=== PATIENT | female | born 1975 | race Caucasian/White ===

== ENCOUNTER → 2018-07-22 10:07 | Outpatient (CLI) | payer OTHER, SELFPAY ==
[2018-07-22 12:25] LABS: Add Manual Diff / Slide Review NO; Basophils Percent Auto 0.8 % (0-2); Eosinophils Percent Auto 3.4 % (2-4); Hemoglobin 13.2 g/dL (12.0-16.0); Mean Corpuscular HGB Conc 33.9 % (30-36); Mean Corpuscular Hemoglobin 31.6 PG (26-34); Mean Corpuscular Volume 93.3 fL (80-100); Monocytes Percent Auto 6.3 % (3-14); Neutrophils Absolute Auto 3200 /uL (3000-5900); Neutrophils Percent Auto 55.5 % (50-75); Platelet Count 209 X10^3/uL (150-400); Red Blood Cell Count 4.18 X10^6/uL (4.0-5.2); Red Cell Distribution Width 12.7 % (11.6-14.8); White Blood Cell Count 5.8 X10^3/uL (4.5-11.0)
[2018-07-22 12:50] LABS: Erythrocyte Sedimentation Rate 7 MM/HR (0-20)
[2018-07-22 20:29] LABS: C-Reactive Protein Quant < 0.5 mg/dL (<1.0)
[2018-07-23 11:18] LABS: Thyroid Stimulating Hormone 0.44 uIU/mL (0.47-4.68)
[2018-07-24 15:25] LABS: Thyroglobulin Level 16.5 ng/mL (2.8-40.9); Thyroid Peroxidase Antibodies 1 IU/mL (< 9)
[2018-07-26 13:19] LABS: ANA Screen POSITIVE (Negative); ANA Titer HOMOGENEOUS; DNA Antibody Crithidia IFA NEGATIVE (Negative); Rheumatoid Factor <14 IU/mL; Sjogren Antiboday SS-A <1.0 NEG AI (<1.0 NEGATIVE); Sjogren Antiboday SS-B <1.0 NEG AI (<1.0 NEGATIVE); Sm Antibody <1.0 NEG AI (<1.0 NEGATIVE); Sm/RNP Antibody <1.0 NEG AI (<1.0 NEGATIVE)
== END ==
PROVIDERS: PCP Internal Medicine; Visit Provider Allergy & Immunology
DX: L50.3 Dermatographic urticaria (principal); T78.3XXA Angioneurotic edema, initial encounter
CPT/HCPCS: 36415; 83520; 84432; 84443; 85025; 85651; 86038; 86140; 86376; 86430

== ENCOUNTER → 2018-08-12 07:58 | Outpatient (CLI) | payer OTHER, SELFPAY ==
[2018-08-17 17:13] LABS: 5-HIAA, Urine 3.1 mg/24 h (< OR = 6.0); Total Volume 2900 mL
[2018-08-21 15:01] LABS: Creatinine, 24 Urine 1.41 g/24 h (0.50-2.15); Total Catecholamines 28 mcg/24 h (26-121); Total Volume: 2900 mL
== END ==
PROVIDERS: Family Provider Internal Medicine; PCP Internal Medicine; Visit Provider Allergy & Immunology
DX: L50.3 Dermatographic urticaria (principal); T78.3XXA Angioneurotic edema, initial encounter
CPT/HCPCS: 82384; 82570; 83497

== ENCOUNTER 2018-10-06 22:10 | Emergency (ER) | payer OTHER, SELFPAY ==
[2018-10-06 22:15] VITALS: BP 139/78; PULSE 85; RESP 20; TEMP 37.1; O2SAT 100; BMI 27.4
--- NOTE | 2018-10-06 23:16 | DI.CT.S_ITS ---
PROCEDURE: CT HEAD/BRAIN WO CON INDICATIONS: confusion, speech trouble TECHNIQUE: Noncontrast 4.5 mm thick angled axial sections acquired from the foramen magnum to the vertex, with coronal and sagittal reformats. For radiation dose reduction, the following was used: automated exposure control, adjustment of mA and/or kV according to patient size. COMPARISON: None. FINDINGS: Image quality: Excellent. CSF spaces: Basal cisterns are patent. No extra-axial fluid collections. Ventricles are normal in size and shape. Brain: No midline shift. No intracranial masses or hemorrhage. [place]-white matter interface is normal. Skull and face: Calvarium and visualized facial bones are intact, without suspicious lesions. Sinuses: Visualized sinuses and mastoids are clear. IMPRESSION: No acute intracranial disease process. Dictated by: Stephani Feliz MD, PhD on 10/07/2018 at 8:02 Approved by: Stephani Feliz MD, PhD on 10/07/2018 at 8:03
[2018-10-06 23:37] LABS: Add Manual Diff / Slide Review NO; Basophils Absolute Auto 0 /uL (0-100); Basophils Percent Auto 0.7 % (0-2); Eosinophils Absolute Auto 100 /uL (0-450); Eosinophils Percent Auto 2.1 % (2-4); Hematocrit 38.8 % (36-46); Hemoglobin 13.1 g/dL (12.0-16.0); Lymphocytes Absolute Auto 1900 /uL (1100-4500); Mean Corpuscular HGB Conc 33.6 % (30-36); Mean Corpuscular Hemoglobin 31.4 PG (26-34); Mean Corpuscular Volume 93.5 fL (80-100); Monocytes Absolute Auto 500 /uL (0-900); Monocytes Percent Auto 8.4 % (3-14); Neutrophils Absolute Auto 3800 /uL (1500-7000); Neutrophils Percent Auto 58.8 % (50-75); Platelet Count 215 X10^3/uL (150-400); Red Blood Cell Count 4.15 X10^6/uL (4.0-5.2); Red Cell Distribution Width 12.4 % (11.6-14.8); White Blood Cell Count 6.4 X10^3/uL (4.5-11.0)
[2018-10-06 23:51] LABS: Alanine Aminotransferase 25 IU/L (9-52); Albumin 4.3 g/dL (3.5-5.0); Albumin Globulin Ratio 1.5 (1.0-2.8); Alkaline Phosphatase 46 U/L (38-126); Aspartate Aminotransferase 20 IU/L (14-36); BUN Creatinine Ratio 16.3 (6-22); Bilirubin Total 0.4 mg/dL (0.2-1.3); Blood Urea Nitrogen 13 mg/dL (7-17); Calcium 8.8 mg/dL (8.4-10.2); Carbon Dioxide 22 mmol/L (22-32); Chloride 105 mmol/L (98-107); Estimated Glomerular Filt Rate > 60.0 mL/min (>60); Globulin 2.9 g/dL (1.7-4.1); Glucose 91 mg/dL (70-100); HEMOLYSIS < 15 (0-50); Potassium 3.8 mmol/L (3.4-5.1); Sodium 138 mmol/L (137-145); Total Protein 7.2 g/dL (6.3-8.2)
[2018-10-07 00:13] LABS: Bacteria Urine None Seen; RBC Urine None Seen (0-5/HPF); WBC Urine None Seen (0-5/HPF)
[2018-10-07 00:16] LABS: Culture Indicated Urine Cult Not Indicated; Squamous Epithelial Cell Urine 1-5 /HPF; Urine Comments Microscopic Normal
[2018-10-07 00:17] LABS: Urine Amphetamines Negative (Negative); Urine Barbiturates Negative (Negative); Urine Benzodiazepines Negative (Negative); Urine Cocaine Negative (Negative); Urine MDMA Negative (Negative); Urine Methadone Negative (Negative); Urine Methamphetamines Negative (Negative); Urine Morphine/Opi cutoff 2000 Negative (Negative); Urine Oxycodone Negative (Negative); Urine Phencyclidine Negative (Negative); Urine Tetrahydrocannabinol Negative (Negative); Urine Tricyclic Antidepressant Negative (Negative)
--- NOTE | 2018-10-07 00:23 | ED.ANXIETY ---
HPI - Anxiety General Chief Complaint: Extremity Problem,Nontraumatic Stated Complaint: Seeing things backwards, cold/tingling L arm Time Seen by Provider: 10/06/18 22:31 Source: patient and family Mode of arrival: ambulatory Limitations: no limitations History of Present Illness HPI narrative: 42-year-old female, nonsmoker with extensive, complicated medical history and current evaluation for possible lupus. Patient presents with multiple months various neurologic symptoms including numbness, tingling and weakness as well as some confusion visual change. She is here today because earlier today she had an episode where she was the quite confused when attempting to read things seemed backwards. She wanted to be checked out. She denies any current symptoms. She admittedly tends to run anxious. She denies alcohol, smoking or street drugs. Patient recently was started on Wellbutrin by her PCP and she states it feels as if her symptoms have drastically worsened since. She has an appointment with him at 0800 tomorrow. MD complaint: anxiety and heart racing Onset (ago): month(s) Symptoms: extremity numbness/tingling and other Severity: moderate Quality: intermittent Place: home History of similar episodes: Yes Provoking factors: none known Relieving factors: nothing Exacerbating factors: nothing Related Data Home Medications Medication Instructions Recorded Confirmed cetirizine 10 mg PO QDAYP PRN #0 tab 06/19/16 Review of Systems Constitutional Denies chills, Denies fever(s), Denies lethargy and Denies weakness Eyes Denies change in vision, Denies eye discharge, Denies irritation and Denies loss of vision ENT Ears, Nose, Mouth, and Throat: Denies change in voice, Denies neck pain and Denies sore throat Cardiovascular Denies chest pain, Denies irregular heart rhythm, Denies lightheadedness, Denies palpitations, Denies dyspnea, Denies dyspnea on exertion and Denies orthopnea Respiratory Denies cough, Denies dyspnea, Denies dyspnea on exertion and Denies wheezing Gastrointestinal Gastrointestinal: Denies abdominal pain, Denies change in bowel habits, Denies diarrhea, Denies nausea and Denies vomiting Genitourinary Denies hematuria, Denies flank pain, Denies urinary incontinence and Denies urinary urgency Musculoskeletal Denies neck pain and Reports numbness Integumentary/Breasts Denies pruritus, Denies erythema, Denies rash and Denies wounds Neurologic Reports confusion, Denies loss of vision, Reports numbness, Reports sensory deficit, Reports paresthesias and Denies weakness Psychiatric Denies anxiety, Reports confusion, Denies depression, Denies homicidal ideation and Denies suicidal ideation Endocrine Denies palpitations Hematologic/Lymphatic Denies easy bruising Allergic/Immunologic Denies wheezing [facility] Surgical History Status post tubal ligation Social History Smoking Status: Never smoker Exam Narrative Exam Narrative: GENERAL: 42-year-old female, pressured speech, obviously anxious and concerned HEAD: Atraumatic. Normocephalic. No temporal or scalp tenderness. EYES: Pupils equal round and reactive. Extraocular motions intact. No scleral icterus. No injection or drainage. ENT: Nose without bleeding, purulent drainage or septal hematoma. Throat without erythema, tonsillar hypertrophy or exudate. Uvula midline. Airway patent. NECK: Trachea midline. No JVD or lymphadenopathy. Supple, nontender, no meningeal signs. CARDIOVASCULAR: Regular rate and rhythm without murmurs, gallops, or rubs. RESPIRATORY: Clear to auscultation. Breath sounds equal bilaterally. No wheezes, rales, or rhonchi. GASTROINTESTINAL: Abdomen soft, non-tender, nondistended. No hepato-splenomegaly, or palpable masses. No guarding. EXTREMITIES: No clubbing, cyanosis, or edema. No joint tenderness, effusion, or edema noted. BACK: Nontender without deformity or crepitance. No flank tenderness. NEURO: AOx3. SKIN: No rash or erythema. NIH Stroke Scale 1a. LOC: Patient is alert and keenly responsive (0) 1b. LOC Questions: Patient answers both LOC questions accurately (0) 1c. LOC Commands: Patient performs both tasks correctly (0) 2. Best Gaze: Normal (0) 3. Visual: No visual loss (0) 4. Facial palsy: Normal symmetrical movements (0) 5. Motor arm: No drift (0) 6. Motor leg: No drift (0) 7. Limb ataxia: Absent (0) 8. Sensory: Normal (0) 9. Best language: No aphasia; normal (0) 10. Dysarthria: Normal (0) 11. Extinction and inattention: No abnormality (0) NIHSS: 0 Initial Vital Signs Initial Vital Signs: Vital Signs Temperature 98.7 F 10/06/18 22:15 Pulse Rate 85 10/06/18 22:15 Respiratory Rate 20 10/06/18 22:15 Blood Pressure 139/78 10/06/18 22:15 Pulse Oximetry 100 10/06/18 22:15 Course Orders Ordered: ED Orders 10/06/18 23:16 CT head/brain wo con Stat 10/06/18 23:22 Complete Blood Count AUTO DIFF Stat Comprehensive Metabolic Panel Stat T4 Total Thyroxine Stat Thyroid Stimulating Hormone Stat 10/07/18 00:06 Urine Drug Screen, Rapid Stat 10/07/18 00:07 Urine Microscopic Stat Vital Signs - 8 hr 10/06/18 22:15 Temperature 98.7 F Pulse Rate 85 Respiratory Rate 20 Blood Pressure 139/78 Pulse Oximetry 100 MDM - Anxiety Differential Diagnosis Differential diagnosis: Likely acute anxiety and other Medical Records Attestation: I reviewed the patient's medical records. Lab Data Attestation: I reviewed the patient's lab results. Result diagrams: 10/06/18 23:22 10/06/18 23:22 Lab Results 10/06/18 10/06/18 10/06/18 Range/Units 23:22 23:22 23:22 WBC 6.4 (4.5-11.0) X10^3/uL RBC 4.15 (4.0-5.2) X10^6/uL Hgb 13.1 (12.0-16.0) g/dL Hct 38.8 (36-46) % MCV 93.5 (80-100) fL MCH 31.4 (26-34) PG MCHC 33.6 (30-36) % RDW 12.4 (11.6-14.8) % Plt Count 215 (150-400) X10^3/uL Neut % (Auto) 58.8 (50-75) % Lymph % (Auto) 30.0 (25-40) % [place] % (Auto) 8.4 (3-14) % Eos % (Auto) 2.1 (2-4) % Baso % (Auto) 0.7 (0-2) % Neut # (Auto) 3800 (1284-0913) /uL Lymph # (Auto) 1900 (6782-1887) /uL [place] # (Auto) 500 (0-900) /uL Eos # (Auto) 100 (0-450) /uL Baso # (Auto) 0 (0-100) /uL Sodium 138 (137-145) mmol/L Potassium 3.8 (3.4-5.1) mmol/L Chloride 105 (98-107) mmol/L Carbon Dioxide 22 (22-32) mmol/L BUN 13 (7-17) mg/dL Creatinine 0.80 (0.52-1.04) mg/dL Estimated GFR > 60.0 (>60) mL/min BUN/Creatinine Ratio 16.3 (6-22) Glucose 91 (70-100) mg/dL Calcium 8.8 (8.4-10.2) mg/dL Total Bilirubin 0.4 (0.2-1.3) mg/dL AST 20 (14-36) IU/L ALT 25 (9-52) IU/L Alkaline Phosphatase 46 (38-126) U/L Total Protein 7.2 (6.3-8.2) g/dL Albumin 4.3 (3.5-5.0) g/dL Globulin 2.9 (1.7-4.1) g/dL Albumin/Globulin Ratio 1.5 (1.0-2.8) TSH 0.47 (0.47-4.68) uIU/mL Urine RBC (0-5/HPF) Urine WBC (0-5/HPF) Ur Squamous Epith Cells Urine Bacteria (None) Ur Culture Indicated? Micro UA Comment Urine Opiates Screen (Negative) Ur Oxycodone Screen (Negative) Urine Methadone Screen (Negative) Ur Barbiturates Screen (Negative) U Tricyclic Antidepress (Negative) Ur Phencyclidine Scrn (Negative) Ur Amphetamines Screen (Negative) U Methamphetamines Scrn (Negative) Ur MDMA Scrn (Ecstasy) (Negative) U Benzodiazepines Scrn (Negative) Urine Cocaine Screen (Negative) U Marijuana (THC) Screen (Negative) 10/06/18 10/06/18 Range/Units 23:41 23:41 WBC (4.5-11.0) X10^3/uL RBC (4.0-5.2) X10^6/uL Hgb (12.0-16.0) g/dL Hct (36-46) % MCV (80-100) fL MCH (26-34) PG MCHC (30-36) % RDW (11.6-14.8) % Plt Count (150-400) X10^3/uL Neut % (Auto) (50-75) % Lymph % (Auto) (25-40) % [place] % (Auto) (3-14) % Eos % (Auto) (2-4) % Baso % (Auto) (0-2) % Neut # (Auto) (0924-4895) /uL Lymph # (Auto) (2311-0100) /uL [place] # (Auto) (0-900) /uL Eos # (Auto) (0-450) /uL Baso # (Auto) (0-100) /uL Sodium (137-145) mmol/L Potassium (3.4-5.1) mmol/L Chloride (98-107) mmol/L Carbon Dioxide (22-32) mmol/L BUN (7-17) mg/dL Creatinine (0.52-1.04) mg/dL Estimated GFR (>60) mL/min BUN/Creatinine Ratio (6-22) Glucose (70-100) mg/dL Calcium (8.4-10.2) mg/dL Total Bilirubin (0.2-1.3) mg/dL AST (14-36) IU/L ALT (9-52) IU/L Alkaline Phosphatase (38-126) U/L Total Protein (6.3-8.2) g/dL Albumin (3.5-5.0) g/dL Globulin (1.7-4.1) g/dL Albumin/Globulin Ratio (1.0-2.8) TSH (0.47-4.68) uIU/mL Urine RBC None seen (0-5/HPF) Urine WBC None seen (0-5/HPF) Ur Squamous Epith Cells 1-5 /hpf Urine Bacteria None seen (None) Ur Culture Indicated? Cult not indicated Micro UA Comment Microscopic normal Urine Opiates Screen Negative (Negative) Ur Oxycodone Screen Negative (Negative) Urine Methadone Screen Negative (Negative) Ur Barbiturates Screen Negative (Negative) U Tricyclic Antidepress Negative (Negative) Ur Phencyclidine Scrn Negative (Negative) Ur Amphetamines Screen Negative (Negative) U Methamphetamines Scrn Negative (Negative) Ur MDMA Scrn (Ecstasy) Negative (Negative) U Benzodiazepines Scrn Negative (Negative) Urine Cocaine Screen Negative (Negative) U Marijuana (THC) Screen Negative (Negative) Point of Care Testing Test Results Negative Urine Dip Bedside Urine Glucose Negative Bedside Urine Bilirubin - Negative Bedside Urine Ketone ++ 40 Urine Specific [place] 1.010 Bedside Urine Occult Blood - Negative Bedside Urine pH 7.0 Bedside Urine Protein - Negative Bedside Urine Urobilinogen - Negative Bedside Urine Nitrite - Negative Bedside Urine Leukocytes - Negative Esterase Imaging Data CT scan - head: Radiologist's impression: NAP MDM Narrative Medical decision making narrative: Multiple etiologies for patient's symptoms considered including: [Anxiety, stroke, TIA, thyroid problem, other metabolic derangement vs. other] Patient's symptoms improved or duration of stay with above-stated therapies. Findings and discharge diagnosis discussed with patient/family followed by verbalization of understanding Return precautions discussed with patient/family whom verbalize understanding. Discharge Plan Departure Patient Disposition: Home Clinical Impression: Paresthesia, Anxiety Instructions: DI for Numbness/tingling Activity Restrictions/Additional Instructions: *You have been diagnosed with [ acute episode of confusion, resolved, paresthesia, resolved ] *What to do: * continue to take medications as directed *Follow up with your primary care provider in 2-3 days, call for an appointment. Let them know you were seen in the Emergency Department and that we ask that you be seen in follow up *Return to ER if you should have any new, worsening or concerning symptoms Prescriptions: No Action cetirizine 10 MG tablet 10 mg PO QDAYP PRNQty: 0 RF: 0 Referrals: Ted Adame MD [Primary Care Provider] -
--- NOTE | 2018-10-07 00:29 | ED_ITS ---
HPI - Anxiety General Chief Complaint: Extremity Problem,Nontraumatic Stated Complaint: Seeing things backwards, cold/tingling L arm Time Seen by Provider: 10/06/18 22:31 Source: patient and family Mode of arrival: ambulatory Limitations: no limitations History of Present Illness HPI narrative: 42-year-old female, nonsmoker with extensive, complicated medical history and current evaluation for possible lupus. Patient presents with multiple months various neurologic symptoms including numbness, tingling and weakness as well as some confusion visual change. She is here today because earlier today she had an episode where she was the quite confused when attempting to read things seemed backwards. She wanted to be checked out. She denies any current symptoms. She admittedly tends to run anxious. She denies alcohol, smoking or street drugs. Patient recently was started on Wellbutrin by her PCP and she states it feels as if her symptoms have drastically worsened since. She has an appointment with him at 0800 tomorrow. MD complaint: anxiety and heart racing Onset (ago): month(s) Symptoms: extremity numbness/tingling and other Severity: moderate Quality: intermittent Place: home History of similar episodes: Yes Provoking factors: none known Relieving factors: nothing Exacerbating factors: nothing Related Data Home Medications Medication Instructions Recorded Confirmed cetirizine 10 mg PO QDAYP PRN #0 tab 06/19/16 Review of Systems Constitutional Denies chills, Denies fever(s), Denies lethargy and Denies weakness Eyes Denies change in vision, Denies eye discharge, Denies irritation and Denies loss of vision ENT Ears, Nose, Mouth, and Throat: Denies change in voice, Denies neck pain and Denies sore throat Cardiovascular Denies chest pain, Denies irregular heart rhythm, Denies lightheadedness, Denies palpitations, Denies dyspnea, Denies dyspnea on exertion and Denies orthopnea Respiratory Denies cough, Denies dyspnea, Denies dyspnea on exertion and Denies wheezing Gastrointestinal Gastrointestinal: Denies abdominal pain, Denies change in bowel habits, Denies diarrhea, Denies nausea and Denies vomiting Genitourinary Denies hematuria, Denies flank pain, Denies urinary incontinence and Denies urinary urgency Musculoskeletal Denies neck pain and Reports numbness Integumentary/Breasts Denies pruritus, Denies erythema, Denies rash and Denies wounds Neurologic Reports confusion, Denies loss of vision, Reports numbness, Reports sensory deficit, Reports paresthesias and Denies weakness Psychiatric Denies anxiety, Reports confusion, Denies depression, Denies homicidal ideation and Denies suicidal ideation Endocrine Denies palpitations Hematologic/Lymphatic Denies easy bruising Allergic/Immunologic Denies wheezing [facility] Surgical History Status post tubal ligation Social History Smoking Status: Never smoker Exam Narrative Exam Narrative: GENERAL: 42-year-old female, pressured speech, obviously anxious and concerned HEAD: Atraumatic. Normocephalic. No temporal or scalp tenderness. EYES: Pupils equal round and reactive. Extraocular motions intact. No scleral icterus. No injection or drainage. ENT: Nose without bleeding, purulent drainage or septal hematoma. Throat without erythema, tonsillar hypertrophy or exudate. Uvula midline. Airway patent. NECK: Trachea midline. No JVD or lymphadenopathy. Supple, nontender, no meningeal signs. CARDIOVASCULAR: Regular rate and rhythm without murmurs, gallops, or rubs. RESPIRATORY: Clear to auscultation. Breath sounds equal bilaterally. No wheezes , rales, or rhonchi. GASTROINTESTINAL: Abdomen soft, non-tender, nondistended. No hepato-splenomegaly , or palpable masses. No guarding. EXTREMITIES: No clubbing, cyanosis, or edema. No joint tenderness, effusion, or edema noted. BACK: Nontender without deformity or crepitance. No flank tenderness. NEURO: AOx3. SKIN: No rash or erythema. NIH Stroke Scale 1a. LOC: Patient is alert and keenly responsive (0) 1b. LOC Questions: Patient answers both LOC questions accurately (0) 1c. LOC Commands: Patient performs both tasks correctly (0) 2. Best Gaze: Normal (0) 3. Visual: No visual loss (0) 4. Facial palsy: Normal symmetrical movements (0) 5. Motor arm: No drift (0) 6. Motor leg: No drift (0) 7. Limb ataxia: Absent (0) 8. Sensory: Normal (0) 9. Best language: No aphasia; normal (0) 10. Dysarthria: Normal (0) 11. Extinction and inattention: No abnormality (0) NIHSS: 0 Initial Vital Signs Initial Vital Signs: Vital Signs Temperature 98.7 F 10/06/18 22:15 Pulse Rate 85 10/06/18 22:15 Respiratory Rate 20 10/06/18 22:15 Blood Pressure 139/78 10/06/18 22:15 Pulse Oximetry 100 10/06/18 22:15 Course Orders Ordered: ED Orders 10/06/18 23:16 CT head/brain wo con Stat 10/06/18 23:22 Complete Blood Count AUTO DIFF Stat Comprehensive Metabolic Panel Stat T4 Total Thyroxine Stat Thyroid Stimulating Hormone Stat 10/07/18 00:06 Urine Drug Screen, Rapid Stat 10/07/18 00:07 Urine Microscopic Stat Vital Signs - 8 hr 10/06/18 22:15 Temperature 98.7 F Pulse Rate 85 Respiratory Rate 20 Blood Pressure 139/78 Pulse Oximetry 100 MDM - Anxiety Differential Diagnosis Differential diagnosis: Likely acute anxiety and other Medical Records Attestation: I reviewed the patient's medical records. Lab Data Attestation: I reviewed the patient's lab results. Result diagrams: 10/06/18 23:22 10/06/18 23:22 Lab Results 10/06/18 10/06/18 10/06/18 Range/Units 23:22 23:22 23:22 WBC 6.4 (4.5-11.0) X10^3/uL RBC 4.15 (4.0-5.2) X10^6/uL Hgb 13.1 (12.0-16.0) g/dL Hct 38.8 (36-46) % MCV 93.5 (80-100) fL MCH 31.4 (26-34) PG MCHC 33.6 (30-36) % RDW 12.4 (11.6-14.8) % Plt Count 215 (150-400) X10^3/uL Neut % (Auto) 58.8 (50-75) % Lymph % (Auto) 30.0 (25-40) % [place] % (Auto) 8.4 (3-14) % Eos % (Auto) 2.1 (2-4) % Baso % (Auto) 0.7 (0-2) % Neut # (Auto) 3800 (5744-0210) /uL Lymph # (Auto) 1900 (8433-9349) /uL [place] # (Auto) 500 (0-900) /uL Eos # (Auto) 100 (0-450) /uL Baso # (Auto) 0 (0-100) /uL Sodium 138 (137-145) mmol/L Potassium 3.8 (3.4-5.1) mmol/L Chloride 105 (98-107) mmol/L Carbon Dioxide 22 (22-32) mmol/L BUN 13 (7-17) mg/dL Creatinine 0.80 (0.52-1.04) mg/dL Estimated GFR > 60.0 (>60) mL/min BUN/Creatinine Ratio 16.3 (6-22) Glucose 91 (70-100) mg/dL Calcium 8.8 (8.4-10.2) mg/dL Total Bilirubin 0.4 (0.2-1.3) mg/dL AST 20 (14-36) IU/L ALT 25 (9-52) IU/L Alkaline Phosphatase 46 (38-126) U/L Total Protein 7.2 (6.3-8.2) g/dL Albumin 4.3 (3.5-5.0) g/dL Globulin 2.9 (1.7-4.1) g/dL Albumin/Globulin Ratio 1.5 (1.0-2.8) TSH 0.47 (0.47-4.68) uIU/mL Urine RBC (0-5/HPF) Urine WBC (0-5/HPF) Ur Squamous Epith Cells Urine Bacteria (None) Ur Culture Indicated? Micro UA Comment Urine Opiates Screen (Negative) Ur Oxycodone Screen (Negative) Urine Methadone Screen (Negative) Ur Barbiturates Screen (Negative) U Tricyclic Antidepress (Negative) Ur Phencyclidine Scrn (Negative) Ur Amphetamines Screen (Negative) U Methamphetamines Scrn (Negative) Ur MDMA Scrn (Ecstasy) (Negative) U Benzodiazepines Scrn (Negative) Urine Cocaine Screen (Negative) U Marijuana (THC) Screen (Negative) 10/06/18 10/06/18 Range/Units 23:41 23:41 WBC (4.5-11.0) X10^3/uL RBC (4.0-5.2) X10^6/uL Hgb (12.0-16.0) g/dL Hct (36-46) % MCV (80-100) fL MCH (26-34) PG MCHC (30-36) % RDW (11.6-14.8) % Plt Count (150-400) X10^3/uL Neut % (Auto) (50-75) % Lymph % (Auto) (25-40) % [place] % (Auto) (3-14) % Eos % (Auto) (2-4) % Baso % (Auto) (0-2) % Neut # (Auto) (6237-7628) /uL Lymph # (Auto) (3349-4157) /uL [place] # (Auto) (0-900) /uL Eos # (Auto) (0-450) /uL Baso # (Auto) (0-100) /uL Sodium (137-145) mmol/L Potassium (3.4-5.1) mmol/L Chloride (98-107) mmol/L Carbon Dioxide (22-32) mmol/L BUN (7-17) mg/dL Creatinine (0.52-1.04) mg/dL Estimated GFR (>60) mL/min BUN/Creatinine Ratio (6-22) Glucose (70-100) mg/dL Calcium (8.4-10.2) mg/dL Total Bilirubin (0.2-1.3) mg/dL AST (14-36) IU/L ALT (9-52) IU/L Alkaline Phosphatase (38-126) U/L Total Protein (6.3-8.2) g/dL Albumin (3.5-5.0) g/dL Globulin (1.7-4.1) g/dL Albumin/Globulin Ratio (1.0-2.8) TSH (0.47-4.68) uIU/mL Urine RBC None seen (0-5/HPF) Urine WBC None seen (0-5/HPF) Ur Squamous Epith Cells 1-5 /hpf Urine Bacteria None seen (None) Ur Culture Indicated? Cult not indicated Micro UA Comment Microscopic normal Urine Opiates Screen Negative (Negative) Ur Oxycodone Screen Negative (Negative) Urine Methadone Screen Negative (Negative) Ur Barbiturates Screen Negative (Negative) U Tricyclic Antidepress Negative (Negative) Ur Phencyclidine Scrn Negative (Negative) Ur Amphetamines Screen Negative (Negative) U Methamphetamines Scrn Negative (Negative) Ur MDMA Scrn (Ecstasy) Negative (Negative) U Benzodiazepines Scrn Negative (Negative) Urine Cocaine Screen Negative (Negative) U Marijuana (THC) Screen Negative (Negative) Point of Care Testing Test Results Negative Urine Dip Bedside Urine Glucose Negative Bedside Urine Bilirubin - Negative Bedside Urine Ketone ++ 40 Urine Specific [place] 1.010 Bedside Urine Occult Blood - Negative Bedside Urine pH 7.0 Bedside Urine Protein - Negative Bedside Urine Urobilinogen - Negative Bedside Urine Nitrite - Negative Bedside Urine Leukocytes - Negative Esterase Imaging Data CT scan - head: Radiologist's impression: NAP MDM Narrative Medical decision making narrative: Multiple etiologies for patient's symptoms considered including: [Anxiety, stroke, TIA, thyroid problem, other metabolic derangement vs. other] Patient's symptoms improved or duration of stay with above-stated therapies. Findings and discharge diagnosis discussed with patient/family followed by verbalization of understanding Return precautions discussed with patient/family whom verbalize understanding. Discharge Plan Departure Patient Disposition: Home Clinical Impression: Paresthesia, Anxiety Instructions: DI for Numbness/tingling Activity Restrictions/Additional Instructions: *You have been diagnosed with [ acute episode of confusion, resolved, paresthesia, resolved ] *What to do: * continue to take medications as directed *Follow up with your primary care provider in 2-3 days, call for an appointment. Let them know you were seen in the Emergency Department and that we ask that you be seen in follow up *Return to ER if you should have any new, worsening or concerning symptoms Prescriptions: No Action cetirizine 10 MG tablet 10 mg PO QDAYP PRNQty: 0 RF: 0 Referrals: Ted Adame MD [Primary Care Provider] -
[2018-10-07 00:34] LABS: Thyroid Stimulating Hormone 0.47 uIU/mL (0.47-4.68)
[2018-10-07 00:45] VITALS: BP 118/72; PULSE 69; O2SAT 100
[2018-10-07 00:58] LABS: T4 Total Thyroxine 7.23 ug/dL (5.5-11.0)
== END 2018-10-07 00:46 | disposition home or self-care (01) ==
PROVIDERS: Emergency Provider Emergency Medicine; Family Provider Internal Medicine; PCP Internal Medicine
DX: R20.2 Paresthesia of skin (principal); F41.9 Anxiety disorder, unspecified
CPT/HCPCS: 36591; 70450; 80053; 80305; 81003; 81015; 81025; 84436; 84443; 85025; 99282; 99284

== ENCOUNTER 2019-03-16 17:36 | Emergency (ER) | payer OTHER, SELFPAY ==
[2019-03-16 17:39] VITALS: BP 102/70; PULSE 109; RESP 20; TEMP 36.9; O2SAT 99
--- NOTE | 2019-03-16 18:52 | DI.RAD.S_ITS ---
PROCEDURE: XR CHEST 2V INDICATIONS: fever, pleuritic pain TECHNIQUE: 2 views of the chest were acquired. COMPARISON: None. FINDINGS: Surgical changes and devices: None. Lungs and pleura: Ill-defined nodular opacity projects in the left perihilar region. This could be further evaluated with dedicated contrast enhanced chest CT if clinically necessary. No pleural effusions or pneumothorax. Mediastinum: Mediastinal contours are normal. Heart size is normal. Bones and chest wall: No suspicious bony abnormalities. Soft tissues appear unremarkable. IMPRESSION: Increased left perihilar opacity, potentially enlarged pulmonary vessels versus lymphadenopathy although technically indeterminate. Elsewhere, no acute consolidation. Dictated by: Abdullahi Childs M.D. on 03/16/2019 at 19:35 Approved by: Abdullahi Childs M.D. on 03/16/2019 at 19:37
--- NOTE | 2019-03-16 19:06 | ED_ITS ---
HPI - Fever General Chief Complaint: Fever Stated Complaint: fever 5x days Time Seen by Provider: 03/16/19 18:52 Source: patient Mode of arrival: ambulatory Limitations: no limitations History of Present Illness HPI Narrative: Patient is a 43-year-old female who was told to come to the emergency department by her primary provider. Patient states that she has had fevers off and on for the past 5 days. She contacted her primary provider who after a telemedicine visit recommended that she come to the emergency department for evaluation. Patient states she has had fevers off and on for the past 5 days. She states she has had body aches and fatigue. No chest pain or shortness of breath. She does state she has right upper abdomen pain. Denies any diarrhea. No urinary symptoms. Related Data Home Medications Medication Instructions Recorded Confirmed cetirizine 40 mg PO QDAYP #0 tab 06/19/16 albuterol sulfate [ProAir HFA] 1 puff INHALATION Q4-6H PRN 03/16/19 03/16/19 gabapentin 600 mg PO BID 03/16/19 03/16/19 lorazepam [Ativan] 1 mg PO BID-TID PRN 03/16/19 03/16/19 montelukast 10 mg PO QPM 03/16/19 03/16/19 zolpidem [Ambien] 10 mg PO BEDTIME PRN 03/16/19 03/16/19 Previous Rx's Medication Instructions Recorded levofloxacin 250 mg PO DAILY #2 tab 03/16/19 Allergies Allergy/AdvReac Type Severity Reaction Status Date / Time No Known Drug Allergies Allergy Verified 03/16/19 17:43 Review of Systems Constitutional Reports body ache(s), Reports chills, Reports fatigue, Reports fever(s) and Reports lethargy Cardiovascular Denies chest pain and Denies dyspnea Respiratory Denies dyspnea Gastrointestinal Gastrointestinal: Reports abdominal pain, Denies change in stool character, Denies nausea and Denies vomiting Genitourinary Denies dysuria and Denies vaginal discharge Musculoskeletal Reports myalgias and Denies arthralgias Integumentary/Breasts Denies rash Neurologic Denies behavioral changes Psychiatric Denies behavioral changes Endocrine Reports fatigue Hematologic/Lymphatic Denies easy bleeding and Denies easy bruising [facility] Medical History Scleroderma (Acute) Surgical History Status post tubal ligation Social History Smoking Status: Never smoker Social History Smoking Status: Never smoker Exam Initial Vital Signs Initial Vital Signs: Vital Signs Temperature 98.4 F 03/16/19 17:39 Pulse Rate 109 H 03/16/19 17:39 Respiratory Rate 20 03/16/19 17:39 Blood Pressure 102/70 03/16/19 17:39 Pulse Oximetry 99 03/16/19 17:39 Const General: cooperative, comfortable, well developed, well groomed and No acute distress Orientation: alert, awake and oriented x3 HENMT Head: normal to inspection and normocephalic Resp Effort & Inspection: normal respiratory effort Auscultation: clear to auscultation bilaterally Cardio Rate: tachycardic Rhythm: regular rhythm Pulses: radial pulses present GI Inspection: non-distended Palpation: soft, No firm, No guarding and tender (Right upper quadrant positive De Jesus sign) Back/Spine/Pelvis Back: No CVA tenderness Skin Lesions: no lesions Rashes: no rashes Neuro General: alert, awake and oriented x3 Cognition: normal cognition Speech: speech normal Extrem General: normal to inspection and capillary refill normal Psych Appearance: grossly normal and well kempt Course Orders Ordered: ED Orders 03/16/19 18:52 XR chest 2V Stat 03/16/19 19:00 Complete Blood Count AUTO DIFF Stat Comprehensive Metabolic Panel Stat Lactate (Lactic Acid) Stat Lipase Stat Partial Thromboplastin Time Stat Procalcitonin Stat Prothrombin Time INR Stat 03/16/19 19:16 US abdomen limited Stat 03/16/19 19:30 Blood Culture Stat 03/16/19 19:40 Influenza A and B by PCR Rapid Stat 03/16/19 22:20 Urine Culture Stat Urine Microscopic Stat Discontinued Medications Acetaminophen (Tylenol) 650 mg PO NOW ONE Stop: 03/16/19 21:07 Last Admin: 03/16/19 21:10 Dose: 650 mg Levofloxacin (Levaquin) 250 mg PO NOW ONE Stop: 03/16/19 23:01 Last Admin: 03/16/19 23:04 Dose: 250 mg Ondansetron HCl (Zofran) 4 mg IV NOW ONE Stop: 03/16/19 21:07 Last Admin: 03/16/19 21:10 Dose: 4 mg Vital Signs - 8 hr 03/16/19 17:39 03/16/19 19:50 03/16/19 21:10 Temperature 98.4 F 99.0 F Pulse Rate 109 H 103 H Respiratory Rate 20 18 Blood Pressure 102/70 Blood Pressure [Left Arm] 108/58 L Pulse Oximetry 99 03/16/19 22:48 03/16/19 22:49 Temperature 98.9 F Pulse Rate 93 H Respiratory Rate 16 Blood Pressure Blood Pressure [Left Arm] 106/57 L Pulse Oximetry 100 MDM - Fever Medical Records Attestation: I reviewed the patient's medical records. Lab Data Attestation: I reviewed the patient's lab results. Result diagrams: 03/16/19 19:00 03/16/19 19:00 Lab Results 03/16/19 03/16/19 03/16/19 Range/Units 19:00 19:00 19:00 WBC 16.4 H (4.5-11.0) X10^3/uL RBC 4.56 (4.0-5.2) X10^6/uL Hgb 14.2 (12.0-16.0) g/dL Hct 41.8 (36-46) % MCV 91.8 (80-100) fL MCH 31.1 (26-34) PG MCHC 33.9 (30-36) % RDW 12.6 (11.6-14.8) % Plt Count 222 (150-400) X10^3/uL Neut % (Auto) 80.0 H (50-75) % Lymph % (Auto) 9.3 L (25-40) % Howard % (Auto) 10.3 (3-14) % Eos % (Auto) 0.2 L (2-4) % Baso % (Auto) 0.2 (0-2) % Neut # (Auto) 22796 H (9827-4283) /uL Lymph # (Auto) 1500 (9048-7332) /uL Howard # (Auto) 1700 H (0-900) /uL Eos # (Auto) 0 (0-450) /uL Baso # (Auto) 0 (0-100) /uL PT 14.1 H (10.1-12.7) SECONDS INR 1.2 (0.9-1.3) APTT 36 (26.4-36.2) SECONDS Sodium (137-145) mmol/L Potassium (3.4-5.1) mmol/L Chloride (98-107) mmol/L Carbon Dioxide (22-32) mmol/L BUN (7-17) mg/dL Creatinine (0.52-1.04) mg/dL Estimated GFR (>60) mL/min BUN/Creatinine Ratio (6-22) Glucose (70-100) mg/dL Lactate 0.9 (0.7-2.1) mmol/L Calcium (8.4-10.2) mg/dL Total Bilirubin (0.2-1.3) mg/dL AST (14-36) IU/L ALT (9-52) IU/L Alkaline Phosphatase (38-126) U/L Total Protein (6.3-8.2) g/dL Albumin (3.5-5.0) g/dL Globulin (1.7-4.1) g/dL Albumin/Globulin Ratio (1.0-2.8) Lipase (23-300) U/L Procalcitonin (<0.5) ng/mL Urine RBC (0-5/HPF) Urine WBC (0-5/HPF) Ur Squamous Epith Cells (0-5/HPF) Urine Bacteria (None) Ur Culture Indicated? Influenza A & B (PCR) (Negative) 03/16/19 03/16/19 03/16/19 Range/Units 19:00 19:00 19:40 WBC (4.5-11.0) X10^3/uL RBC (4.0-5.2) X10^6/uL Hgb (12.0-16.0) g/dL Hct (36-46) % MCV (80-100) fL MCH (26-34) PG MCHC (30-36) % RDW (11.6-14.8) % Plt Count (150-400) X10^3/uL Neut % (Auto) (50-75) % Lymph % (Auto) (25-40) % Howard % (Auto) (3-14) % Eos % (Auto) (2-4) % Baso % (Auto) (0-2) % Neut # (Auto) (5185-8156) /uL Lymph # (Auto) (4326-2250) /uL Howard # (Auto) (0-900) /uL Eos # (Auto) (0-450) /uL Baso # (Auto) (0-100) /uL PT (10.1-12.7) SECONDS INR (0.9-1.3) APTT (26.4-36.2) SECONDS Sodium 138 (137-145) mmol/L Potassium 3.6 (3.4-5.1) mmol/L Chloride 98 (98-107) mmol/L Carbon Dioxide 27 (22-32) mmol/L BUN 9 (7-17) mg/dL Creatinine 1.00 (0.52-1.04) mg/dL Estimated GFR > 60.0 (>60) mL/min BUN/Creatinine Ratio 9.0 (6-22) Glucose 119 H (70-100) mg/dL Lactate (0.7-2.1) mmol/L Calcium 9.2 (8.4-10.2) mg/dL Total Bilirubin 0.5 (0.2-1.3) mg/dL AST 50 H (14-36) IU/L ALT 33 (9-52) IU/L Alkaline Phosphatase 108 (38-126) U/L Total Protein 7.6 (6.3-8.2) g/dL Albumin 4.0 (3.5-5.0) g/dL Globulin 3.6 (1.7-4.1) g/dL Albumin/Globulin Ratio 1.1 (1.0-2.8) Lipase 20 L (23-300) U/L Procalcitonin 0.86 H (<0.5) ng/mL Urine RBC (0-5/HPF) Urine WBC (0-5/HPF) Ur Squamous Epith Cells (0-5/HPF) Urine Bacteria (None) Ur Culture Indicated? Influenza A & B (PCR) Negative (Negative) 03/16/19 Range/Units 22:20 WBC (4.5-11.0) X10^3/uL RBC (4.0-5.2) X10^6/uL Hgb (12.0-16.0) g/dL Hct (36-46) % MCV (80-100) fL MCH (26-34) PG MCHC (30-36) % RDW (11.6-14.8) % Plt Count (150-400) X10^3/uL Neut % (Auto) (50-75) % Lymph % (Auto) (25-40) % Howard % (Auto) (3-14) % Eos % (Auto) (2-4) % Baso % (Auto) (0-2) % Neut # (Auto) (0843-1162) /uL Lymph # (Auto) (2397-0632) /uL Howard # (Auto) (0-900) /uL Eos # (Auto) (0-450) /uL Baso # (Auto) (0-100) /uL PT (10.1-12.7) SECONDS INR (0.9-1.3) APTT (26.4-36.2) SECONDS Sodium (137-145) mmol/L Potassium (3.4-5.1) mmol/L Chloride (98-107) mmol/L Carbon Dioxide (22-32) mmol/L BUN (7-17) mg/dL Creatinine (0.52-1.04) mg/dL Estimated GFR (>60) mL/min BUN/Creatinine Ratio (6-22) Glucose (70-100) mg/dL Lactate (0.7-2.1) mmol/L Calcium (8.4-10.2) mg/dL Total Bilirubin (0.2-1.3) mg/dL AST (14-36) IU/L ALT (9-52) IU/L Alkaline Phosphatase (38-126) U/L Total Protein (6.3-8.2) g/dL Albumin (3.5-5.0) g/dL Globulin (1.7-4.1) g/dL Albumin/Globulin Ratio (1.0-2.8) Lipase (23-300) U/L Procalcitonin (<0.5) ng/mL Urine RBC 1-5/hpf (0-5/HPF) Urine WBC 10-30/hpf H (0-5/HPF) Ur Squamous Epith Cells 1-5 /hpf (0-5/HPF) Urine Bacteria Many (>30) H (None) Ur Culture Indicated? Specimen cultured Influenza A & B (PCR) (Negative) Urine Dip Bedside Urine Glucose Negative Bedside Urine Bilirubin - Negative Bedside Urine Ketone + 15 Urine Specific [place] 1.010 Bedside Urine Occult Blood + Bedside Urine pH 6.0 Bedside Urine Protein + 30 Bedside Urine Urobilinogen +/- 1mg Bedside Urine Nitrite + Positive Bedside Urine Leukocytes +++ 500 Esterase Imaging Data Chest x-ray: Radiologist's impression: [address] [address] XRay Report Signed Patient: Preeti Caballero [facility]#: [id number] : 1975Acct:[id number] Age/Sex: 43 / FDate of Service: 03/16/19 Loc: ED Accession Number: [id number] Procedure: XR chest 2V Ordering Provider: Haritha South P.A-C PROCEDURE: XR CHEST 2V INDICATIONS: fever, pleuritic pain TECHNIQUE: 2 views of the chest were acquired. COMPARISON: None. FINDINGS: Surgical changes and devices: None. Lungs and pleura: Ill-defined nodular opacity projects in the left perihilar region. This could be further evaluated with dedicated contrast enhanced chest CT if clinically necessary. No pleural effusions or pneumothorax. Mediastinum: Mediastinal contours are normal. Heart size is normal. Bones and chest wall: No suspicious bony abnormalities. Soft tissues appear unremarkable. IMPRESSION: Increased left perihilar opacity, potentially enlarged pulmonary vessels versus lymphadenopathy although technically indeterminate. Elsewhere, no acute consolidation. Dictated by: Abdullahi Childs M.D. on 03/16/2019 at 19:35 Approved by: Abdullahi Childs M.D. on 03/16/2019 at 19:37 US - abdomen: Radiologist's impression: Read by real Radiology No acute abnormalities. The pancreas is not visualized due to overlying bowel gas. 2.3 cm right hepatic lobe likely hemangioma. This could be confirmed with nonemergency T him angioma protocol. MDM Narrative Medical decision making narrative: Patient is nontoxic appearing however does have an elevated white blood cell count an elevated procalcitonin. The right upper quadrant ultrasound is unremarkable. She does have nitrite positive urine however has no dysuria. This could very well be the cause of her symptoms for the past couple days. Her chest x-ray also shows bibasilar findings. She clinically does not have pneumonia. He has not been coughing. Has clear lung exam. Given the urinary tract infection and the lung findings will start her on Levaquin to cover both these potential sources. Do not feel patient needs admitted in the hospital. Patient was informed of the ultrasound findings. She was informed of the urine culture that was pending and the potential need to change antibiotics. She expressed understanding and agreement. Discharge Plan Departure Patient Disposition: Home Clinical Impression: UTI (urinary tract infection) Qualifiers: Urinary tract infection type: acute cystitis Hematuria presence: without hematuria Qualified Code(s): N30.00 - Acute cystitis without hematuria Discharge Date/Time: 03/16/19 23:43 Interventions: ED Discharge Assessment Last Done: 03/16/19 23:30 Instructions: DI for Urinary Tract Infection (UTI) Activity Restrictions/Additional Instructions: Take the antibiotics as directed. Contact Dr. shay office tomorrow for follow-up. Return to the emergency department for any new or worsening symptoms Prescriptions: New levofloxacin 250 mg tablet 250 mg PO DAILY Qty: 2 RF: 0 No Action cetirizine 10 MG tablet 40 mg PO QDAYP Qty: 0 RF: 0 lorazepam [Ativan] 0.5 mg Tablet 1 mg PO BID-TID PRN (Reason: Anxiety) RF: 0 gabapentin 300 mg Capsule 600 mg PO BID RF: 0 montelukast 10 mg Tablet 10 mg PO QPM RF: 0 zolpidem [Ambien] 10 mg Tablet 10 mg PO BEDTIME PRN (Reason: Respiratory Distress) RF: 0 albuterol sulfate [ProAir HFA] 90 mcg/actuation Hfa Aerosol Inhaler 1 puff INHALATION Q4-6H PRN (Reason: Anxiety) RF: 0 Referrals: Ted Adame MD [Primary Care Provider] -
--- NOTE | 2019-03-16 19:16 | DI.US.S_ITS ---
PROCEDURE: US ABDOMEN LIMITED INDICATIONS: RIGHT UPPER QUADRANT PAIN TECHNIQUE: Real-time focused scanning was performed of the abdomen, with image documentation. COMPARISON: [facility], CR, XR CHEST 2V, 03/16/2019, 18:56. FINDINGS: Study was limited at clinician request for right upper quadrant pain. The liver is normal in size and echotexture except for presence of a solitary echogenic solid nodule within the anterior right hepatic lobe measuring 1.9 x 2.3 x 2.3 cm. The structure shows a subtle increased through-transmission pattern consistent with hemangioma. Bile ducts are normal in caliber, gallbladder appears normal. IMPRESSION: Presumed hemangioma as cause of echogenic 2.3 cm maximal dimension right anterior hepatic lobe nodule. This area could be further assessed utilizing contrast-enhanced hepatic protocol MR scanning to assist in establishing etiology if clinically desired. Note: These findings are concordant with the preliminary interpretation. Dictated by: Tello Govea M.D. on 03/17/2019 at 8:59 Approved by: Tello Govea M.D. on 03/17/2019 at 9:04
[2019-03-16 19:22] LABS: Add Manual Diff / Slide Review NO; Basophils Absolute Auto 0 /uL (0-100); Basophils Percent Auto 0.2 % (0-2); Eosinophils Absolute Auto 0 /uL (0-450); Eosinophils Percent Auto 0.2 % (2-4); Hematocrit 41.8 % (36-46); Hemoglobin 14.2 g/dL (12.0-16.0); Lymphocytes Absolute Auto 1500 /uL (1100-4500); Lymphocytes Percent Auto 9.3 % (25-40); Mean Corpuscular HGB Conc 33.9 % (30-36); Mean Corpuscular Hemoglobin 31.1 PG (26-34); Mean Corpuscular Volume 91.8 fL (80-100); Monocytes Absolute Auto 1700 /uL (0-900); Monocytes Percent Auto 10.3 % (3-14); Neutrophils Absolute Auto 13100 /uL (1500-7000); Platelet Count 222 X10^3/uL (150-400); Red Blood Cell Count 4.56 X10^6/uL (4.0-5.2); Red Cell Distribution Width 12.6 % (11.6-14.8); White Blood Cell Count 16.4 X10^3/uL (4.5-11.0)
[2019-03-16 19:27] LABS: INR 1.2 (0.9-1.3); Prothrombin Time 14.1 SECONDS (10.1-12.7)
[2019-03-16 19:29] LABS: PTT Partial Thromboplastin Tim 36 SECONDS (26.4-36.2)
[2019-03-16 19:31] LABS: Alanine Aminotransferase 33 IU/L (9-52); Albumin Globulin Ratio 1.1 (1.0-2.8); Alkaline Phosphatase 108 U/L (38-126); Aspartate Aminotransferase 50 IU/L (14-36); Bilirubin Total 0.5 mg/dL (0.2-1.3); Blood Urea Nitrogen 9 mg/dL (7-17); Calcium 9.2 mg/dL (8.4-10.2); Carbon Dioxide 27 mmol/L (22-32); Chloride 98 mmol/L (98-107); Estimated Glomerular Filt Rate > 60.0 mL/min (>60); Globulin 3.6 g/dL (1.7-4.1); Glucose 119 mg/dL (70-100); HEMOLYSIS < 15 (0-50); Lipase 20 U/L (23-300); Potassium 3.6 mmol/L (3.4-5.1); Sodium 138 mmol/L (137-145); Total Protein 7.6 g/dL (6.3-8.2)
[2019-03-16 19:32] LABS: Lactate (Lactic Acid) 0.9 mmol/L (0.7-2.1)
[2019-03-16 19:50] VITALS: BP 108/58; PULSE 103; RESP 18
[2019-03-16 19:51] LABS: Procalcitonin 0.86 ng/mL (<0.5)
[2019-03-16 20:01] LABS: Influenza A and B by PCR Rapid Negative (Negative)
[2019-03-16 21:10] VITALS: TEMP 37.2
[2019-03-16] MEDS: ONDANSETRON 4 MG/2 ML INJ IV (21:10)
[2019-03-16] MEDS: ACETAMINOPHEN 325 MG TABLET 650 MG PO (21:10)
[2019-03-16 22:48] VITALS: TEMP 37.2
[2019-03-16 22:48] LABS: Bacteria Urine Many (>30); Culture Indicated Urine Specimen Cultured; RBC Urine 1-5/HPF (0-5/HPF); Squamous Epithelial Cell Urine 1-5 /HPF (0-5/HPF); WBC Urine 10-30/HPF (0-5/HPF)
[2019-03-16 22:49] VITALS: BP 106/57; PULSE 93; RESP 16; O2SAT 100
[2019-03-16] MEDS: levoFLOXacin 250 MG TABLET PO (23:04)
== END 2019-03-16 23:43 | disposition home or self-care (01) ==
PROVIDERS: Internal Medicine; Emergency Provider Emergency Medicine; Family Provider Internal Medicine; PCP Internal Medicine
DX: N30.00 Acute cystitis without hematuria (principal)
CPT/HCPCS: 36415; 71046; 76705; 80053; 81003; 81015; 83605; 83690; 84145; 85025; 85610; 85730; 87040; 87077; 87086; 87186; 87400; 96374; 99282; 99284; J2405

== ENCOUNTER 2019-03-19 08:40 | Emergency (ER) | payer OTHER, SELFPAY ==
[2019-03-19 08:53] VITALS: BP 123/75; PULSE 96; RESP 12; TEMP 36.7; O2SAT 100; BMI 23.3
[2019-03-19 08:58] LABS: Appearance Urine UA CLEAR; Bilirubin Urine UA NEGATIVE (NEGATIVE); Color Urine UA YELLOW; Glucose Urine UA TRACE g/dL (Negative); Ketones Urine UA NEGATIVE (NEGATIVE); Leukocyte Esterase Urine UA 1+ (NEGATIVE); Nitrite Urine UA POSITIVE (Negative); Occult Blood Urine UA TRACE-LYSED (Negative); Protein Urine UA TRACE (Negative); Specific Gravity Urine UA 1.015 (1.000-1.035)
--- NOTE | 2019-03-19 09:03 | ED.FEMALEGU ---
HPI - Female Genitourinary General Chief complaint: Urogenital-Female Stated complaint: sweating,fever,vomiting,pain l flank Time Seen by Provider: 03/19/19 08:44 Source: patient and family Mode of arrival: ambulatory Limitations: no limitations History of Present Illness HPI Narrative: This is a 43-year-old female comes to the emergency department for complaint of fevers and chills for about a week. The patient was seen on March 16, she was diagnosed with a UTI and started on Levaquin. Patient continued to have symptoms and has been feeling worse so called her primary care who changed her antibiotic to cefdinir. Patient has had 2 doses. She states she broke out in a rash last night. She also felt a little bit discomfort in her mouth irritation behind her teeth. She has not appreciated any swelling in her mouth or oropharynx. She has not had any difficulty with breathing. She has continued to have increasing discomfort, she now has left flank pain. She has dysuria but denies hesitancy or urgency. No vaginal bleeding or discharge. She states she has not had a bowel movement since March 11. She is passing gas regularly. She did vomit twice early this morning. She states she has had recurrent UTIs on and off. She has had Macrobid and even been on it daily as a prophylaxis when she was . She states that she takes gabapentin for systemic scleroderma. States she has had her tubes tied. She denies allergies to medications. Dr. Adame is her PCP. No tobacco, alcohol or illicit. Related Data Home Medications Medication Instructions Recorded Confirmed cetirizine 10 mg PO QID #0 tab 06/19/16 03/19/19 albuterol sulfate [ProAir HFA] 1 puff INHALATION Q4-6H PRN 03/16/19 03/19/19 gabapentin 600 mg PO QAM 03/16/19 03/19/19 lorazepam [Ativan] 1 mg PO BID PRN 03/16/19 03/19/19 montelukast 10 mg PO QPM 03/16/19 03/19/19 zolpidem [Ambien] 10 mg PO BEDTIME PRN 03/16/19 03/19/19 gabapentin 300 mg PO BID 03/19/19 03/19/19 Previous Rx's Medication Instructions Recorded levofloxacin 250 mg PO DAILY #2 tab 03/16/19 ciprofloxacin HCl 500 mg PO BID #14 tab 03/19/19 ondansetron HCl [Zofran] 4 mg PO QID PRN #5 tab 03/19/19 Allergies Allergy/AdvReac Type Severity Reaction Status Date / Time cefdinir Allergy Verified 03/19/19 09:00 Review of Systems Review of Systems ROS Unobtainable: All systems reviewed & are unremarkable except as noted in HPI and below Constitutional Reports chills, Reports fever(s) (Subjective), Denies lethargy and Denies weakness ENT Ears, Nose, Mouth, and Throat: Denies lip swelling, Reports mouth pain, Denies throat swelling and Denies tongue swelling Gastrointestinal Gastrointestinal: Denies abdominal pain, Denies melena, Denies hematochezia, Denies change in bowel habits, Reports constipation, Denies diarrhea, Reports nausea, Reports vomiting and Reports other (Passing gas regularly) Genitourinary Denies abnormal vaginal bleeding, Denies hematuria, Denies urinary frequency, Reports dysuria, Reports flank pain (Left), Denies urinary incontinence, Denies urinary hesitancy, Denies urinary urgency, Denies vaginal discharge and Denies vaginal odor Integumentary/Breasts Reports pruritus (That has now resolved) and Reports rash Neurologic Denies weakness Allergic/Immunologic Denies lip swelling, Denies throat swelling and Denies tongue swelling PFS Medical History Scleroderma (Acute) Surgical History Status post tubal ligation Social History Smoking Status: Never smoker Social History (Updated 03/19/19 @ 09:06 by Jocelyn Jean DO) Smoking Status: Never smoker alcohol intake: never substance use type: does not use Exam Narrative Exam Narrative: GEN: well nourished, well appearing female, alert and oriented x 3, patient appears to be in [default value] distress. HEENT: Atraumatic, pupils are equal round reactive to light, extraocular movements are intact, nares are clear, TMs are clear with no fluid, there is no conjunctival pallor. Throat is clear without any exudates, erythema, tonsillar enlargement or uvular deviation, swelling of the oropharynx. No blistering or erythema or rash. HEART: Regular rate and rhythm without murmur, clicks, rubs. LUNGS:Lungs clear to auscultation, no wheezes, rales, crackles, chest moves symmetrically ABD:bowel sounds normal, soft, non-tender, no guarding, rebound, rigidity, no masses noted, no hepatosplenomegaly :Left CVA tenderness, no right CVA tenderness. MSCL: Non-tender, no muscle atrophy, muscles strength 5/5 upper and lower extremities, full range of motion, normal gait NEURO:CN 2-12 intact, sensation tia SKIN: Patient does have some erythematous raised wheals on her left flank as well as right shoulder and anterior chest. No vesicles are noted. No weeping. They do not appear papular. Initial Vital Signs Initial Vital Signs: Vital Signs Temperature 98.1 F 03/19/19 08:53 Pulse Rate 96 H 03/19/19 08:53 Respiratory Rate 12 03/19/19 08:53 Blood Pressure 123/75 03/19/19 08:53 Pulse Oximetry 100 03/19/19 08:53 Course Orders Ordered: ED Orders 03/19/19 10:12 US abdomen limited Stat Discontinued Medications Sodium Chloride (Normal Saline 0.9%) 1,000 mls @ 1,000 mls/hr IV BOLUS ONE Stop: 03/19/19 10:02 Last Infusion: 03/19/19 10:12 Dose: 0 mls/hr Admin: 03/19/19 09:19 Dose: 1,000 mls/hr Ketorolac Tromethamine (Toradol) 30 mg IV NOW ONE Stop: 03/19/19 09:04 Last Admin: 03/19/19 09:19 Dose: 30 mg Ondansetron HCl (Zofran) 4 mg IV NOW ONE Stop: 03/19/19 09:04 Last Admin: 03/19/19 09:19 Dose: 4 mg Potassium Chloride (Potassium Chloride) 40 meq PO NOW ONE Stop: 03/19/19 10:13 Last Admin: 03/19/19 10:25 Dose: 40 meq Vital Signs - 8 hr 03/19/19 11:10 03/19/19 12:00 03/19/19 12:43 Pulse Rate 85 84 81 Respiratory Rate 18 16 18 Blood Pressure 101/77 Blood Pressure [Left Arm] 105/68 107/73 Pulse Oximetry 68 L 98 98 MDM - Female Genitourinary Lab Data Attestation: I reviewed the patient's lab results. Result diagrams: 03/19/19 09:10 03/19/19 09:10 Lab Results 03/19/19 03/19/19 03/19/19 Range/Units 08:45 08:45 09:10 WBC 11.7 H (4.5-11.0) X10^3/uL RBC 4.34 (4.0-5.2) X10^6/uL Hgb 13.5 (12.0-16.0) g/dL Hct 38.9 (36-46) % MCV 89.7 (80-100) fL MCH 31.1 (26-34) PG MCHC 34.7 (30-36) % RDW 12.5 (11.6-14.8) % Plt Count 350 (150-400) X10^3/uL Neut % (Auto) 70.2 (50-75) % Lymph % (Auto) 17.1 L (25-40) % [place] % (Auto) 11.7 (3-14) % Eos % (Auto) 0.4 L (2-4) % Baso % (Auto) 0.6 (0-2) % Neut # (Auto) 8200 H (2521-9612) /uL Lymph # (Auto) 2000 (4559-7154) /uL [place] # (Auto) 1400 H (0-900) /uL Eos # (Auto) 0 (0-450) /uL Baso # (Auto) 100 (0-100) /uL Sodium (137-145) mmol/L Potassium (3.4-5.1) mmol/L Chloride (98-107) mmol/L Carbon Dioxide (22-32) mmol/L BUN (7-17) mg/dL Creatinine (0.52-1.04) mg/dL Estimated GFR (>60) mL/min BUN/Creatinine Ratio (6-22) Glucose (70-100) mg/dL Lactate (0.7-2.1) mmol/L Calcium (8.4-10.2) mg/dL Total Bilirubin (0.2-1.3) mg/dL AST (14-36) IU/L ALT (9-52) IU/L Alkaline Phosphatase (38-126) U/L Total Protein (6.3-8.2) g/dL Albumin (3.5-5.0) g/dL Globulin (1.7-4.1) g/dL Albumin/Globulin Ratio (1.0-2.8) Procalcitonin (<0.5) ng/mL Urine Color Yellow Urine Appearance Clear Urine pH 7.0 (4.5-8.0) Ur Specific [place] Level 1.015 (1.000-1.035) Urine Protein Trace H (Negative) Urine Glucose (UA) Trace H (Negative) g/dL Urine Ketones Negative (NEGATIVE) Urine Occult Blood Trace-lysed (Negative) Urine Nitrate Positive (Negative) Urine Bilirubin Negative (NEGATIVE) Urine Urobilinogen 4.0 H (0.2) E.U./dL Ur Leukocyte Esterase 1+ H (NEGATIVE) Urine RBC 1-5/hpf (0-5/HPF) Urine WBC 5-10/hpf H (0-5/HPF) Ur Squamous Epith Cells 1-5 /hpf (0-5/HPF) Urine Bacteria Moderate (10-30) H (None) Ur Culture Indicated? Specimen cultured Urine Test Negative (Negative) Acetaminophen (10-30) ug/mL 03/19/19 03/19/19 03/19/19 Range/Units 09:10 09:10 09:10 WBC (4.5-11.0) X10^3/uL RBC (4.0-5.2) X10^6/uL Hgb (12.0-16.0) g/dL Hct (36-46) % MCV (80-100) fL MCH (26-34) PG MCHC (30-36) % RDW (11.6-14.8) % Plt Count (150-400) X10^3/uL Neut % (Auto) (50-75) % Lymph % (Auto) (25-40) % [place] % (Auto) (3-14) % Eos % (Auto) (2-4) % Baso % (Auto) (0-2) % Neut # (Auto) (7192-0951) /uL Lymph # (Auto) (6618-0451) /uL [place] # (Auto) (0-900) /uL Eos # (Auto) (0-450) /uL Baso # (Auto) (0-100) /uL Sodium 140 (137-145) mmol/L Potassium 2.6 L* (3.4-5.1) mmol/L Chloride 100 (98-107) mmol/L Carbon Dioxide 28 (22-32) mmol/L BUN 7 (7-17) mg/dL Creatinine 0.70 (0.52-1.04) mg/dL Estimated GFR > 60.0 (>60) mL/min BUN/Creatinine Ratio 10.0 (6-22) Glucose 115 H (70-100) mg/dL Lactate (0.7-2.1) mmol/L Calcium 9.6 (8.4-10.2) mg/dL Total Bilirubin 0.6 (0.2-1.3) mg/dL AST 140 H (14-36) IU/L ALT 188 H (9-52) IU/L Alkaline Phosphatase 191 H D (38-126) U/L Total Protein 8.0 (6.3-8.2) g/dL Albumin 4.1 (3.5-5.0) g/dL Globulin 3.9 (1.7-4.1) g/dL Albumin/Globulin Ratio 1.1 (1.0-2.8) Procalcitonin 0.23 (<0.5) ng/mL Urine Color Urine Appearance Urine pH (4.5-8.0) Ur Specific [place] Level (1.000-1.035) Urine Protein (Negative) Urine Glucose (UA) (Negative) g/dL Urine Ketones (NEGATIVE) Urine Occult Blood (Negative) Urine Nitrate (Negative) Urine Bilirubin (NEGATIVE) Urine Urobilinogen (0.2) E.U./dL Ur Leukocyte Esterase (NEGATIVE) Urine RBC (0-5/HPF) Urine WBC (0-5/HPF) Ur Squamous Epith Cells (0-5/HPF) Urine Bacteria (None) Ur Culture Indicated? Urine Test (Negative) Acetaminophen < 10 L (10-30) ug/mL 03/19/19 Range/Units 09:25 WBC (4.5-11.0) X10^3/uL RBC (4.0-5.2) X10^6/uL Hgb (12.0-16.0) g/dL Hct (36-46) % MCV (80-100) fL MCH (26-34) PG MCHC (30-36) % RDW (11.6-14.8) % Plt Count (150-400) X10^3/uL Neut % (Auto) (50-75) % Lymph % (Auto) (25-40) % [place] % (Auto) (3-14) % Eos % (Auto) (2-4) % Baso % (Auto) (0-2) % Neut # (Auto) (2235-2331) /uL Lymph # (Auto) (1042-9868) /uL [place] # (Auto) (0-900) /uL Eos # (Auto) (0-450) /uL Baso # (Auto) (0-100) /uL Sodium (137-145) mmol/L Potassium (3.4-5.1) mmol/L Chloride (98-107) mmol/L Carbon Dioxide (22-32) mmol/L BUN (7-17) mg/dL Creatinine (0.52-1.04) mg/dL Estimated GFR (>60) mL/min BUN/Creatinine Ratio (6-22) Glucose (70-100) mg/dL Lactate 1.5 (0.7-2.1) mmol/L Calcium (8.4-10.2) mg/dL Total Bilirubin (0.2-1.3) mg/dL AST (14-36) IU/L ALT (9-52) IU/L Alkaline Phosphatase (38-126) U/L Total Protein (6.3-8.2) g/dL Albumin (3.5-5.0) g/dL Globulin (1.7-4.1) g/dL Albumin/Globulin Ratio (1.0-2.8) Procalcitonin (<0.5) ng/mL Urine Color Urine Appearance Urine pH (4.5-8.0) Ur Specific [place] Level (1.000-1.035) Urine Protein (Negative) Urine Glucose (UA) (Negative) g/dL Urine Ketones (NEGATIVE) Urine Occult Blood (Negative) Urine Nitrate (Negative) Urine Bilirubin (NEGATIVE) Urine Urobilinogen (0.2) E.U./dL Ur Leukocyte Esterase (NEGATIVE) Urine RBC (0-5/HPF) Urine WBC (0-5/HPF) Ur Squamous Epith Cells (0-5/HPF) Urine Bacteria (None) Ur Culture Indicated? Urine Test (Negative) Acetaminophen (10-30) ug/mL Imaging Data Renal ultrasound: Radiologist's impression: prelim is negative. [address] [address] Ultrasound Report Signed Patient: Preeti Caballero MMR#: [id number] : 1975Acct:[id number] Age/Sex: 43 / FDate of Service: 03/19/19 Loc: ED Accession Number: [id number] Procedure: US renal complete Ordering Provider: Jocelyn Jean D.O. PROCEDURE: US RENAL COMPLETE INDICATIONS: LEFT FLANK PAIN, +URINE CULTURE, CONCERN FOR PYLONEPHRITIS TECHNIQUE: Real-time scanning was performed of the kidneys and bladder, with image documentation. COMPARISON: None. FINDINGS: Kidneys: Kidneys are normal in size. Right kidney measures 12.0 cm long; left kidney measures 12.0 cm long. Right renal cortical thickness is 1.3 cm; left renal cortical thickness is 1.1 cm. Renal cortical echotexture is normal. No hydronephrosis or nephrolithiasis. No suspicious solid mass lesions. Bladder: Pre-void bladder volume is 91 mL. Post-void residual is 0 mL. Pre-void images demonstrate no intraluminal masses or stones. On pre-void images, the bilateral ureteral jets were not visualized with color Doppler interrogation. (Of note, ureteral jets may not be detectable in up to 25% of cases due to insufficient differences in specific gravity between ureteral and bladder urine). Miscellaneous: No free pelvic fluid. IMPRESSION: Unremarkable bilateral renal ultrasound without evidence for obstructive uropathy or urolithiasis. Dictated by: Luis Michelle M.D. on 03/19/2019 at 10:21 Approved by: Shi US - abdomen: Radiologist's impression: [address] [address] Ultrasound Report Signed Patient: Preeti Caballero MMR#: [id number] : 1975Acct:[id number] Age/Sex: 43 / FDate of Service: 03/19/19 Loc: ED Accession Number: [id number] Procedure: US abdomen limited Ordering Provider: Jocelyn Jean D.O. PROCEDURE: US ABDOMEN LIMITED INDICATIONS: RUQ, ELEVATED LFT'S TECHNIQUE: Real-time scanning was performed of the abdominal and retroperitoneal organs, with image documentation. COMPARISON: [facility], , US ABDOMEN LIMITED, 03/16/2019, 20:11. FINDINGS: Liver: Liver is normal in size and homogeneous in echotexture. There is a stable circumscribed hyperechoic lesion within the right hepatic lobe likely representing a hemangioma. Gallbladder: Gallbladder is normal in sonographic appearance without gallstones, gall sludge, wall thickening, or pericholecystic fluid. No sonographic De Jesus's. Biliary ducts: Intrahepatic bile ducts are non-dilated. Extrahepatic bile duct caliber measures 4 mm. Normal is 6-7 mm or less in diameter, or 10 mm or less post-cholecystectomy. Pancreas: Visualized portions of the pancreas are sonographically normal. Spleen: Spleen measures 15 cm in length and is homogeneous in echotexture. Splenic volume measured 157 mL. IVC: Intrahepatic inferior vena cava is patent. Miscellaneous: No free abdominal fluid. IMPRESSION: 1. Stable sonographic appearance of the liver with normal hepatic echotexture and unchanged appearance of circumscribed hyperechoic right hepatic lobe lesion which is presumably a hemangioma. Further characterization with nonemergent MRI can be considered if establishing etiology is clinically desired. 2. Normal sonographic evaluation of the gallbladder. 3. Mild splenomegaly with splenic length measuring 15 cm. Dictated by: Luis Michelle M.D. on 03/19/2019 at 12:08 Approved by: Luis Michelle M.D. on 03/19/2019 at 12:18 MDM Narrative Medical decision making narrative: Patient has a urine culture from 03/16/2019 which shows E coli. Blood cultures were negative. Patient had resistance to ampicillin/an facility and sulbactam. Otherwise was sensitive with a colony count of 100,000. Levaquin appears appropriate coverage although patient was on 250mg for three days. Patient's white count is trending downward, procalcitonin is also improved it was positive and today is negative. Renal ultrasound does not show any clear signs of pyelo or kidney stone. LFTs are elevated, she is hypokalemic. Patient was vomiting which could be the cause of her hypokalemia. Unclear for her LFTs. She was taking some Excedrin last week but denies lot of Tylenol ingestion. Tylenol level is negative patient's renal ultrasound shows hemangioma but no other acute changes. Patient denies alcohol ingestion. She states she has been on Cipro before and tolerated well. Her or you a continues to show positive for nitrates so I would treat her as a pyelonephritis and continue her on ciprofloxacin for an additional week. I did have her stop the cefdinir as she seems to have had a reaction to the medication. The patient feels much better after fluids, Zofran and Toradol. She is given a script for some Zofran as well. In strict return precautions. Patient is comfortable with this plan. We discussed that she does need to follow up with her physician in regards to her liver enzymes as may need to be recheck to make sure the returning to normal and that she does not have hepatitis or other cause. Discharge Plan Departure Patient Disposition: Home Clinical Impression: Pyelonephritis, Elevated liver enzymes, Hypokalemia Discharge Date/Time: 03/19/19 12:45 Interventions: ED Discharge Assessment Last Done: 03/19/19 12:43 Instructions: DI for Kidney Infection Activity Restrictions/Additional Instructions: Follow-up with primary care on Friday for recheck of your labs including potassium and liver enzymes. These may be off secondary to vomiting but they should be re-evaluated to make sure the returning to normal. Your labs show improvement of her white count as well as procalcitonin, her urine continues to show infection. Sensitivity show that you can take ciprofloxacin. Stop cefdinir as I suspect you may have had allergic reaction. Start the antibiotic given today and take until completed. Your prescriptions were sent to [facility] in [place] You may take ibuprofen up to 800 mg every 8 hours as needed for pain. You may take Zofran sublingually every 6 hours as needed for nausea. Return to the ER for fevers greater than 100.4 F, persistent vomiting, worsening abdominal or back pain, worsening urinary symptoms, passing out, black or bloody stools or other new or concerning symptoms. Prescriptions: New ciprofloxacin HCl 500 mg tablet 500 mg PO BID Qty: 14 RF: 0 ondansetron HCl [Zofran] 4 mg tablet 4 mg PO QID PRN (Reason: nausea and vomiting) Qty: 5 RF: 0 No Action cetirizine 10 MG tablet 10 mg PO QID Qty: 0 RF: 0 gabapentin 300 mg capsule 300 mg PO BID RF: 0 lorazepam [Ativan] 0.5 mg Tablet 1 mg PO BID PRN (Reason: Anxiety) RF: 0 gabapentin 300 mg Capsule 600 mg PO QAM RF: 0 montelukast 10 mg Tablet 10 mg PO QPM RF: 0 zolpidem [Ambien] 10 mg Tablet 10 mg PO BEDTIME PRN (Reason: Sleep) RF: 0 albuterol sulfate [ProAir HFA] 90 mcg/actuation Hfa Aerosol Inhaler 1 puff INHALATION Q4-6H PRN (Reason: Anxiety) RF: 0 levofloxacin 250 mg tablet 250 mg PO DAILY Qty: 2 RF: 0 Referrals: Ted Adame MD [Primary Care Provider] -
--- NOTE | 2019-03-19 09:11 | ED_ITS ---
HPI - Female Genitourinary General Chief complaint: Urogenital-Female Stated complaint: sweating,fever,vomiting,pain l flank Time Seen by Provider: 03/19/19 08:44 Source: patient and family Mode of arrival: ambulatory Limitations: no limitations History of Present Illness HPI Narrative: This is a 43-year-old female comes to the emergency department for complaint of fevers and chills for about a week. The patient was seen on March 16, she was diagnosed with a UTI and started on Levaquin. Patient continued to have symptoms and has been feeling worse so called her primary care who changed her antibiotic to cefdinir. Patient has had 2 doses. She states she broke out in a rash last night. She also felt a little bit discomfort in her mouth irritation behind her teeth. She has not appreciated any swelling in her mouth or oropharynx. She has not had any difficulty with breathing. She has continued to have increasing discomfort, she now has left flank pain. She has dysuria but denies hesitancy or urgency. No vaginal bleeding or discharge. She states she has not had a bowel movement since March 11. She is passing gas regularly. She did vomit twice early this morning. She states she has had recu rrent UTIs on and off. She has had Macrobid and even been on it daily as a prophylaxis when she was . She states that she takes gabapentin for systemic scleroderma. States she has had her tubes tied. She denies allergies to medications. Dr. Adame is her PCP. No tobacco, alcohol or illicit. Related Data Home Medications Medication Instructions Recorded Confirmed cetirizine 10 mg PO QID #0 tab 06/19/16 03/19/19 albuterol sulfate [ProAir HFA] 1 puff INHALATION Q4-6H PRN 03/16/19 03/19/19 gabapentin 600 mg PO QAM 03/16/19 03/19/19 lorazepam [Ativan] 1 mg PO BID PRN 03/16/19 03/19/19 montelukast 10 mg PO QPM 03/16/19 03/19/19 zolpidem [Ambien] 10 mg PO BEDTIME PRN 03/16/19 03/19/19 gabapentin 300 mg PO BID 03/19/19 03/19/19 Previous Rx's Medication Instructions Recorded levofloxacin 250 mg PO DAILY #2 tab 03/16/19 ciprofloxacin HCl 500 mg PO BID #14 tab 03/19/19 ondansetron HCl [Zofran] 4 mg PO QID PRN #5 tab 03/19/19 Allergies Allergy/AdvReac Type Severity Reaction Status Date / Time cefdinir Allergy Verified 03/19/19 09:00 Review of Systems Review of Systems ROS Unobtainable: All systems reviewed & are unremarkable except as noted in HPI and below Constitutional Reports chills, Reports fever(s) (Subjective), Denies lethargy and Denies weakness ENT Ears, Nose, Mouth, and Throat: Denies lip swelling, Reports mouth pain, Denies throat swelling and Denies tongue swelling Gastrointestinal Gastrointestinal: Denies abdominal pain, Denies melena, Denies hematochezia, Denies change in bowel habits, Reports constipation, Denies diarrhea, Reports nausea, Reports vomiting and Reports other (Passing gas regularly) Genitourinary Denies abnormal vaginal bleeding, Denies hematuria, Denies urinary frequency, Reports dysuria, Reports flank pain (Left), Denies urinary incontinence, Denies urinary hesitancy, Denies urinary urgency, Denies vaginal discharge and Denies vaginal odor Integumentary/Breasts Reports pruritus (That has now resolved) and Reports rash Neurologic Denies weakness Allergic/Immunologic Denies lip swelling, Denies throat swelling and Denies tongue swelling FOR[facility]LY [facility] Medical History Scleroderma (Acute) Surgical History Status post tubal ligation Social History Smoking Status: Never smoker Social History (Updated 03/19/19 @ 09:06 by Jocelyn Jean DO) Smoking Status: Never smoker alcohol intake: never substance use type: does not use Exam Narrative Exam Narrative: GEN: well nourished, well appearing female, alert and oriented x 3, patient appears to be in [default value] distress. HEENT: Atraumatic, pupils are equal round reactive to light, extraocular movements are intact, nares are clear, TMs are clear with no fluid, there is no conjunctival pallor. Throat is clear without any exudates, erythema, tonsillar enlargement or uvular deviation, swelling of the oropharynx. No blistering or erythema or rash. HEART: Regular rate and rhythm without murmur, clicks, rubs. LUNGS:Lungs clear to auscultation, no wheezes, rales, crackles, chest moves symmetrically ABD:bowel sounds normal, soft, non-tender, no guarding, rebound, rigidity, no masses noted, no hepatosplenomegaly :Left CVA tenderness, no right CVA tenderness. MSCL: Non-tender, no muscle atrophy, muscles strength 5/5 upper and lower extremities, full range of motion, normal gait NEURO:CN 2-12 intact, sensation tia SKIN: Patient does have some erythematous raised wheals on her left flank as well as right shoulder and anterior chest. No vesicles are noted. No weeping. They do not appear papular. Initial Vital Signs Initial Vital Signs: Vital Signs Temperature 98.1 F 03/19/19 08:53 Pulse Rate 96 H 03/19/19 08:53 Respiratory Rate 12 03/19/19 08:53 Blood Pressure 123/75 03/19/19 08:53 Pulse Oximetry 100 03/19/19 08:53 Course Orders Ordered: ED Orders 03/19/19 10:12 US abdomen limited Stat Discontinued Medications Sodium Chloride (Normal Saline 0.9%) 1,000 mls @ 1,000 mls/hr IV BOLUS ONE Stop: 03/19/19 10:02 Last Infusion: 03/19/19 10:12 Dose: 0 mls/hr Admin: 03/19/19 09:19 Dose: 1,000 mls/hr Ketorolac Tromethamine (Toradol) 30 mg IV NOW ONE Stop: 03/19/19 09:04 Last Admin: 03/19/19 09:19 Dose: 30 mg Ondansetron HCl (Zofran) 4 mg IV NOW ONE Stop: 03/19/19 09:04 Last Admin: 03/19/19 09:19 Dose: 4 mg Potassium Chloride (Potassium Chloride) 40 meq PO NOW ONE Stop: 03/19/19 10:13 Last Admin: 03/19/19 10:25 Dose: 40 meq Vital Signs - 8 hr 03/19/19 11:10 03/19/19 12:00 03/19/19 12:43 Pulse Rate 85 84 81 Respiratory Rate 18 16 18 Blood Pressure 101/77 Blood Pressure [Left Arm] 105/68 107/73 Pulse Oximetry 68 L 98 98 MDM - Female Genitourinary Lab Data Attestation: I reviewed the patient's lab results. Result diagrams: 03/19/19 09:10 03/19/19 09:10 Lab Results 03/19/19 03/19/19 03/19/19 Range/Units 08:45 08:45 09:10 WBC 11.7 H (4.5-11.0) X10^3/uL RBC 4.34 (4.0-5.2) X10^6/uL Hgb 13.5 (12.0-16.0) g/dL Hct 38.9 (36-46) % MCV 89.7 (80-100) fL MCH 31.1 (26-34) PG MCHC 34.7 (30-36) % RDW 12.5 (11.6-14.8) % Plt Count 350 (150-400) X10^3/uL Neut % (Auto) 70.2 (50-75) % Lymph % (Auto) 17.1 L (25-40) % Mclennan % (Auto) 11.7 (3-14) % Eos % (Auto) 0.4 L (2-4) % Baso % (Auto) 0.6 (0-2) % Neut # (Auto) 8200 H (1560-6372) /uL Lymph # (Auto) 2000 (5218-5959) /uL Mclennan # (Auto) 1400 H (0-900) /uL Eos # (Auto) 0 (0-450) /uL Baso # (Auto) 100 (0-100) /uL Sodium (137-145) mmol/L Potassium (3.4-5.1) mmol/L Chloride (98-107) mmol/L Carbon Dioxide (22-32) mmol/L BUN (7-17) mg/dL Creatinine (0.52-1.04) mg/dL Estimated GFR (>60) mL/min BUN/Creatinine Ratio (6-22) Glucose (70-100) mg/dL Lactate (0.7-2.1) mmol/L Calcium (8.4-10.2) mg/dL Total Bilirubin (0.2-1.3) mg/dL AST (14-36) IU/L ALT (9-52) IU/L Alkaline Phosphatase (38-126) U/L Total Protein (6.3-8.2) g/dL Albumin (3.5-5.0) g/dL Globulin (1.7-4.1) g/dL Albumin/Globulin Ratio (1.0-2.8) Procalcitonin (<0.5) ng/mL Urine Color Yellow Urine Appearance Clear Urine pH 7.0 (4.5-8.0) Ur Specific [place] 1.015 (1.000-1.035) Urine Protein Trace H (Negative) Urine Glucose (UA) Trace H (Negative) g/dL Urine Ketones Negative (NEGATIVE) Urine Occult Blood Trace-lysed (Negative) Urine Nitrate Positive (Negative) Urine Bilirubin Negative (NEGATIVE) Urine Urobilinogen 4.0 H (0.2) E.U./dL Ur Leukocyte Esterase 1+ H (NEGATIVE) Urine RBC 1-5/hpf (0-5/HPF) Urine WBC 5-10/hpf H (0-5/HPF) Ur Squamous Epith Cells 1-5 /hpf (0-5/HPF) Urine Bacteria Moderate (10-30) H (None) Ur Culture Indicated? Specimen cultured Urine Test Negative (Negative) Acetaminophen (10-30) ug/mL 03/19/19 03/19/19 03/19/19 Range/Units 09:10 09:10 09:10 WBC (4.5-11.0) X10^3/uL RBC (4.0-5.2) X10^6/uL Hgb (12.0-16.0) g/dL Hct (36-46) % MCV (80-100) fL MCH (26-34) PG MCHC (30-36) % RDW (11.6-14.8) % Plt Count (150-400) X10^3/uL Neut % (Auto) (50-75) % Lymph % (Auto) (25-40) % Mclennan % (Auto) (3-14) % Eos % (Auto) (2-4) % Baso % (Auto) (0-2) % Neut # (Auto) (1567-9260) /uL Lymph # (Auto) (9707-1967) /uL Mclennan # (Auto) (0-900) /uL Eos # (Auto) (0-450) /uL Baso # (Auto) (0-100) /uL Sodium 140 (137-145) mmol/L Potassium 2.6 L* (3.4-5.1) mmol/L Chloride 100 (98-107) mmol/L Carbon Dioxide 28 (22-32) mmol/L BUN 7 (7-17) mg/dL Creatinine 0.70 (0.52-1.04) mg/dL Estimated GFR > 60.0 (>60) mL/min BUN/Creatinine Ratio 10.0 (6-22) Glucose 115 H (70-100) mg/dL Lactate (0.7-2.1) mmol/L Calcium 9.6 (8.4-10.2) mg/dL Total Bilirubin 0.6 (0.2-1.3) mg/dL AST 140 H (14-36) IU/L ALT 188 H (9-52) IU/L Alkaline Phosphatase 191 H D (38-126) U/L Total Protein 8.0 (6.3-8.2) g/dL Albumin 4.1 (3.5-5.0) g/dL Globulin 3.9 (1.7-4.1) g/dL Albumin/Globulin Ratio 1.1 (1.0-2.8) Procalcitonin 0.23 (<0.5) ng/mL Urine Color Urine Appearance Urine pH (4.5-8.0) Ur Specific [place] (1.000-1.035) Urine Protein (Negative) Urine Glucose (UA) (Negative) g/dL Urine Ketones (NEGATIVE) Urine Occult Blood (Negative) Urine Nitrate (Negative) Urine Bilirubin (NEGATIVE) Urine Urobilinogen (0.2) E.U./dL Ur Leukocyte Esterase (NEGATIVE) Urine RBC (0-5/HPF) Urine WBC (0-5/HPF) Ur Squamous Epith Cells (0-5/HPF) Urine Bacteria (None) Ur Culture Indicated? Urine Test (Negative) Acetaminophen < 10 L (10-30) ug/mL 03/19/19 Range/Units 09:25 WBC (4.5-11.0) X10^3/uL RBC (4.0-5.2) X10^6/uL Hgb (12.0-16.0) g/dL Hct (36-46) % MCV (80-100) fL MCH (26-34) PG MCHC (30-36) % RDW (11.6-14.8) % Plt Count (150-400) X10^3/uL Neut % (Auto) (50-75) % Lymph % (Auto) (25-40) % Mclennan % (Auto) (3-14) % Eos % (Auto) (2-4) % Baso % (Auto) (0-2) % Neut # (Auto) (3240-2995) /uL Lymph # (Auto) (4408-8488) /uL Mclennan # (Auto) (0-900) /uL Eos # (Auto) (0-450) /uL Baso # (Auto) (0-100) /uL Sodium (137-145) mmol/L Potassium (3.4-5.1) mmol/L Chloride (98-107) mmol/L Carbon Dioxide (22-32) mmol/L BUN (7-17) mg/dL Creatinine (0.52-1.04) mg/dL Estimated GFR (>60) mL/min BUN/Creatinine Ratio (6-22) Glucose (70-100) mg/dL Lactate 1.5 (0.7-2.1) mmol/L Calcium (8.4-10.2) mg/dL Total Bilirubin (0.2-1.3) mg/dL AST (14-36) IU/L ALT (9-52) IU/L Alkaline Phosphatase (38-126) U/L Total Protein (6.3-8.2) g/dL Albumin (3.5-5.0) g/dL Globulin (1.7-4.1) g/dL Albumin/Globulin Ratio (1.0-2.8) Procalcitonin (<0.5) ng/mL Urine Color Urine Appearance Urine pH (4.5-8.0) Ur Specific [place] (1.000-1.035) Urine Protein (Negative) Urine Glucose (UA) (Negative) g/dL Urine Ketones (NEGATIVE) Urine Occult Blood (Negative) Urine Nitrate (Negative) Urine Bilirubin (NEGATIVE) Urine Urobilinogen (0.2) E.U./dL Ur Leukocyte Esterase (NEGATIVE) Urine RBC (0-5/HPF) Urine WBC (0-5/HPF) Ur Squamous Epith Cells (0-5/HPF) Urine Bacteria (None) Ur Culture Indicated? Urine Test (Negative) Acetaminophen (10-30) ug/mL Imaging Data Renal ultrasound: Radiologist's impression: prelim is negative. [address] [address] Ultrasound Report Signed Patient: Preeti Caballero [facility]#: [id number] : 1975Acct:[id number] Age/Sex: 43 / FDate of Service: 03/19/19 Loc: ED Accession Number: [id number] Procedure: US renal complete Ordering Provider: Jocelyn Jean D.O. PROCEDURE: US RENAL COMPLETE INDICATIONS: LEFT FLANK PAIN, +URINE CULTURE, CONCERN FOR PYLONEPHRITIS TECHNIQUE: Real-time scanning was performed of the kidneys and bladder, with image documentation. COMPARISON: None. FINDINGS: Kidneys: Kidneys are normal in size. Right kidney measures 12.0 cm long; left kidney measures 12.0 cm long. Right renal cortical thickness is 1.3 cm; left renal cortical thickness is 1.1 cm. Renal cortical echotexture is normal. No hydronephrosis or nephrolithiasis. No suspicious solid mass lesions. Bladder: Pre-void bladder volume is 91 mL. Post-void residual is 0 mL. Pre- void images demonstrate no intraluminal masses or stones. On pre-void images, the bilateral ureteral jets were not visualized with color Doppler interrogation. (Of note, ureteral jets may not be detectable in up to 25% of cases due to insufficient differences in specific gravity between ureteral and bladder urine). Miscellaneous: No free pelvic fluid. IMPRESSION: Unremarkable bilateral renal ultrasound without evidence for obstructive uropathy or urolithiasis. Dictated by: Luis Michelle M.D. on 03/19/2019 at 10:21 Approved by: Shi US - abdomen: Radiologist's impression: [address] [address] Ultrasound Report Signed Patient: Preeti Caballero [facility]#: [id number] : 1975Acct:[id number] Age/Sex: 43 / FDate of Service: 03/19/19 Loc: ED Accession Number: [id number] Procedure: US abdomen limited Ordering Provider: Jocelyn Jean D.O. PROCEDURE: US ABDOMEN LIMITED INDICATIONS: RUQ, ELEVATED LFT'S TECHNIQUE: Real-time scanning was performed of the abdominal and retroperitoneal organs, with image documentation. COMPARISON: [facility], , US ABDOMEN LIMITED, 03/16/2019, 20:11. FINDINGS: Liver: Liver is normal in size and homogeneous in echotexture. There is a stable circumscribed hyperechoic lesion within the right hepatic lobe likely representing a hemangioma. Gallbladder: Gallbladder is normal in sonographic appearance without gallstones, gall sludge, wall thickening, or pericholecystic fluid. No sonographic De Jesus's. Biliary ducts: Intrahepatic bile ducts are non-dilated. Extrahepatic bile duct caliber measures 4 mm. Normal is 6-7 mm or less in diameter, or 10 mm or less post-cholecystectomy. Pancreas: Visualized portions of the pancreas are sonographically normal. Spleen: Spleen measures 15 cm in length and is homogeneous in echotexture. Splenic volume measured 157 mL. IVC: Intrahepatic inferior vena cava is patent. Miscellaneous: No free abdominal fluid. IMPRESSION: 1. Stable sonographic appearance of the liver with normal hepatic echotexture and unchanged appearance of circumscribed hyperechoic right hepatic lobe lesion which is presumably a hemangioma. Further characterization with nonemergent MRI can be considered if establishing etiology is clinically desired. 2. Normal sonographic evaluation of the gallbladder. 3. Mild splenomegaly with splenic length measuring 15 cm. Dictated by: Luis Michelle M.D. on 03/19/2019 at 12:08 Approved by: Luis Michelle M.D. on 03/19/2019 at 12:18 MDM Narrative Medical decision making narrative: Patient has a urine culture from 03/16/2019 which shows E coli. Blood cultures were negative. Patient had resistance to ampicillin/an facility and sulbactam. Otherwise was sensitive with a colony count of 100,000. Levaquin appears appropriate coverage although patient was on 250mg for three days. Patient's white count is trending downward, procalcitonin is also improved it was positive and today is negative. Renal ultrasound does not show any clear signs of pyelo or kidney stone. LFTs are elevated, she is hypokalemic. Patient was vomiting which could be the cause of her hypokalemia. Unclear for her LFTs. She was taking some Excedrin last week but denies lot of Tylenol ingestion. Tylenol level is negative patient's renal ultrasound shows hemangioma but no other acute changes. Patient denies alcohol ingestion. She states she has been on Cipro before and tolerated well. Her or you a continues to show positive for nitrates so I would treat her as a pyelonephritis and continue her on ciprofloxacin for an additional week. I did have her stop the cefdinir as she seems to have had a reaction to the medication. The patient feels much better after fluids, Zofran and Toradol. She is given a script for some Zofran as well. In strict return precautions. Patient is comfortable with this plan. We discussed that she does need to follow up with her physician in regards to her liver enzymes as may need to be recheck to make sure the returning to normal and that she does not have hepatitis or other cause. Discharge Plan Departure Patient Disposition: Home Clinical Impression: Pyelonephritis, Elevated liver enzymes, Hypokalemia Discharge Date/Time: 03/19/19 12:45 Interventions: ED Discharge Assessment Last Done: 03/19/19 12:43 Instructions: DI for Kidney Infection Activity Restrictions/Additional Instructions: Follow-up with primary care on Friday for recheck of your labs including potassium and liver enzymes. These may be off secondary to vomiting but they should be re-evaluated to make sure the returning to normal. Your labs show improvement of her white count as well as procalcitonin, her urine continues to show infection. Sensitivity show that you can take ciprofloxacin. Stop cefdinir as I suspect you may have had allergic reaction. Start the antibiotic given today and take until completed. Your prescriptions were sent to [facility] in [place] You may take ibuprofen up to 800 mg every 8 hours as needed for pain. You may take Zofran sublingually every 6 hours as needed for nausea. Return to the ER for fevers greater than 100.4 F, persistent vomiting, worsening abdominal or back pain, worsening urinary symptoms, passing out, black or bloody stools or other new or concerning symptoms. Prescriptions: New ciprofloxacin HCl 500 mg tablet 500 mg PO BID Qty: 14 RF: 0 ondansetron HCl [Zofran] 4 mg tablet 4 mg PO QID PRN (Reason: nausea and vomiting) Qty: 5 RF: 0 No Action cetirizine 10 MG tablet 10 mg PO QID Qty: 0 RF: 0 gabapentin 300 mg capsule 300 mg PO BID RF: 0 lorazepam [Ativan] 0.5 mg Tablet 1 mg PO BID PRN (Reason: Anxiety) RF: 0 gabapentin 300 mg Capsule 600 mg PO QAM RF: 0 montelukast 10 mg Tablet 10 mg PO QPM RF: 0 zolpidem [Ambien] 10 mg Tablet 10 mg PO BEDTIME PRN (Reason: Sleep) RF: 0 albuterol sulfate [ProAir HFA] 90 mcg/actuation Hfa Aerosol Inhaler 1 puff INHALATION Q4-6H PRN (Reason: Anxiety) RF: 0 levofloxacin 250 mg tablet 250 mg PO DAILY Qty: 2 RF: 0 Referrals: Ted Adame MD [Primary Care Provider] -
[2019-03-19 09:12] LABS: Bacteria Urine Moderate (10-30); Culture Indicated Urine Specimen Cultured; RBC Urine 1-5/HPF (0-5/HPF); Squamous Epithelial Cell Urine 1-5 /HPF (0-5/HPF); WBC Urine 5-10/HPF (0-5/HPF)
[2019-03-19] MEDS: SODIUM CHLORIDE 0.9% 1,000 ML 1000 ML IV (09:19)
[2019-03-19] MEDS: KETOROLAC 60 MG/2 ML VIAL 30 MG IV (09:19)
[2019-03-19] MEDS: ONDANSETRON 4 MG/2 ML INJ IV (09:19)
[2019-03-19 09:28] LABS: Add Manual Diff / Slide Review NO; Basophils Absolute Auto 100 /uL (0-100); Basophils Percent Auto 0.6 % (0-2); Eosinophils Absolute Auto 0 /uL (0-450); Eosinophils Percent Auto 0.4 % (2-4); Hematocrit 38.9 % (36-46); Hemoglobin 13.5 g/dL (12.0-16.0); Lymphocytes Absolute Auto 2000 /uL (1100-4500); Lymphocytes Percent Auto 17.1 % (25-40); Mean Corpuscular HGB Conc 34.7 % (30-36); Mean Corpuscular Hemoglobin 31.1 PG (26-34); Mean Corpuscular Volume 89.7 fL (80-100); Monocytes Absolute Auto 1400 /uL (0-900); Monocytes Percent Auto 11.7 % (3-14); Neutrophils Absolute Auto 8200 /uL (1500-7000); Neutrophils Percent Auto 70.2 % (50-75); Platelet Count 350 X10^3/uL (150-400); Red Blood Cell Count 4.34 X10^6/uL (4.0-5.2); Red Cell Distribution Width 12.5 % (11.6-14.8); White Blood Cell Count 11.7 X10^3/uL (4.5-11.0)
[2019-03-19 09:40] LABS: Alanine Aminotransferase 188 IU/L (9-52); Albumin 4.1 g/dL (3.5-5.0); Albumin Globulin Ratio 1.1 (1.0-2.8); Alkaline Phosphatase 191 U/L (38-126); Aspartate Aminotransferase 140 IU/L (14-36); Bilirubin Total 0.6 mg/dL (0.2-1.3); Blood Urea Nitrogen 7 mg/dL (7-17); Calcium 9.6 mg/dL (8.4-10.2); Carbon Dioxide 28 mmol/L (22-32); Chloride 100 mmol/L (98-107); Estimated Glomerular Filt Rate > 60.0 mL/min (>60); Globulin 3.9 g/dL (1.7-4.1); Glucose 115 mg/dL (70-100); HEMOLYSIS < 15 (0-50); Sodium 140 mmol/L (137-145)
[2019-03-19 09:41] LABS: Pregnancy Test Urine Negative (Negative)
[2019-03-19 09:50] LABS: Lactate (Lactic Acid) 1.5 mmol/L (0.7-2.1)
--- NOTE | 2019-03-19 09:58 | PC.NURSE ---
Pt c/o pain at IV site. No infiltration and has great blood return. Warm blanket placed and expl if pt continues to have pain to call and we will restart IV
[2019-03-19 10:01] LABS: Procalcitonin 0.23 ng/mL (<0.5)
[2019-03-19 10:07] LABS: Potassium 2.6 mmol/L (3.4-5.1)
--- NOTE | 2019-03-19 10:12 | DI.US.S_ITS ---
PROCEDURE: US ABDOMEN LIMITED INDICATIONS: RUQ, ELEVATED LFT'S TECHNIQUE: Real-time scanning was performed of the abdominal and retroperitoneal organs, with image documentation. COMPARISON: [facility], US, US ABDOMEN LIMITED, 03/16/2019, 20:11. FINDINGS: Liver: Liver is normal in size and homogeneous in echotexture. There is a stable circumscribed hyperechoic lesion within the right hepatic lobe likely representing a hemangioma. Gallbladder: Gallbladder is normal in sonographic appearance without gallstones, gall sludge, wall thickening, or pericholecystic fluid. No sonographic De Jesus's. Biliary ducts: Intrahepatic bile ducts are non-dilated. Extrahepatic bile duct caliber measures 4 mm. Normal is 6-7 mm or less in diameter, or 10 mm or less post-cholecystectomy. Pancreas: Visualized portions of the pancreas are sonographically normal. Spleen: Spleen measures 15 cm in length and is homogeneous in echotexture. Splenic volume measured 157 mL. IVC: Intrahepatic inferior vena cava is patent. Miscellaneous: No free abdominal fluid. IMPRESSION: 1. Stable sonographic appearance of the liver with normal hepatic echotexture and unchanged appearance of circumscribed hyperechoic right hepatic lobe lesion which is presumably a hemangioma. Further characterization with nonemergent MRI can be considered if establishing etiology is clinically desired. 2. Normal sonographic evaluation of the gallbladder. 3. Mild splenomegaly with splenic length measuring 15 cm. Dictated by: Luis Michelle M.D. on 03/19/2019 at 12:08 Approved by: Luis Michelle M.D. on 03/19/2019 at 12:18
[2019-03-19] MEDS: POTASSIUM CHLORIDE 20 MEQ/15 ML UDC 40 MEQ PO (10:25)
[2019-03-19 11:06] LABS: Acetaminophen < 10 ug/mL (10-30)
[2019-03-19 11:10] VITALS: BP 105/68; PULSE 85; RESP 18; O2SAT 68
[2019-03-19 12:00] VITALS: BP 107/73; PULSE 84; RESP 16; O2SAT 98
[2019-03-19 12:43] VITALS: BP 101/77; PULSE 81; RESP 18; O2SAT 98
--- NOTE | 2019-03-19 12:45 | PC.NURSE ---
Delay in DC as pt had more questions for
== END 2019-03-19 12:45 | disposition home or self-care (01) ==
PROVIDERS: Emergency Provider Emergency Medicine; Family Provider Internal Medicine; PCP Internal Medicine
DX: N12 Tubulo-interstitial nephritis, not specified as acute or chronic (principal); R74.8 Abnormal levels of other serum enzymes; E87.6 Hypokalemia
CPT/HCPCS: 36415; 36591; 76705; 76770; 80053; 80329; 81001; 81025; 83605; 84145; 85025; 87040; 87086; 96361; 96374; 96375; 99283; 99284; G0480; J1885; J2405

== ENCOUNTER → 2023-03-26 12:53 | Outpatient (CLI) | payer OTHER, SELFPAY ==
--- NOTE | 2023-03-26 12:54 | DI.US.S_ITS ---
PROCEDURE: US PELVIC COMPLETE INDICATIONS: DUB X 1 MONTH TECHNIQUE: Real-time scanning was performed of the pelvic organs, with image documentation. Additional endovaginal scanning was necessary due to incomplete visualization of the adnexal and endometrial structures by transabdominal scanning. COMPARISON: [facility], US, PELVIC COMPLETE, 01/04/2013, 12:53. FINDINGS: Uterus: Uterus is anteverted and normal in size at 10.0 x 5.6 x 6.6 cm. The myometrium is homogeneous. The endometrium measures 20.2 mm combined thickness. No fibroids identified. Ovaries: The right ovary measures 3.2 x 1.8 x 2.5 cm, with a calculated ovarian volume of 7.2 cc. The left ovary measures 2.2 x 1.2 x 2.3 cm, with a calculated ovarian volume of 2.9 cc. The ovaries have a normal sonographic appearance. Less than 12 follicles can be seen in each ovary. No adnexal masses are seen. Other: No pathologic free abdominal or pelvic fluid. IMPRESSION: Abnormally thickened endometrial stripe. Findings consistent with endometrial hyperplasia. Cannot exclude endometrial carcinoma. Comment: Consider repeat study in approximately 6 weeks to identify change in thickness of the endometrium. We strive to produce accurate, complete, and clear reports of imaging services. To assist us in improving patient care, this report was composed using standard report templates and voice recognition software. Therefore, it may contain abnormal punctuation, insertions and/or omissions. Occasional wrong-word or sound-alike substitutions may occur. Though we review the report and make efforts to correct it, we do recommend that the report be read carefully in proper context to recognize any text inaccuracies. Dictated by: Jose Dowd M.D. on 03/26/2023 at 14:45 Approved by: Jose Dowd M.D. on 03/26/2023 at 14:49
== END ==
PROVIDERS: Family Provider Internal Medicine; PCP Internal Medicine; Referring Provider Obstetrics & Gynecology; Visit Provider Obstetrics & Gynecology
DX: N92.0 Excessive and frequent menstruation with regular cycle (principal); R93.89 Abnormal findings on diagnostic imaging of other specified body structures
CPT/HCPCS: 76830; 76856

== ENCOUNTER 2023-04-28 06:33 | Day surgery (SDC) | payer OTHER, SELFPAY ==
[2023-04-17 15:12] VITALS: BMI 26.1
[2023-04-28] VITALS (16 sets, daily range): BP systolic 109–125; BP diastolic 53–86; PULSE 70–101; RESP 9–18; TEMP 36.1–37.1; O2SAT 95–100; BMI 24.5
--- NOTE | 2023-04-28 | PATH_ITS ---
[facility] Accession Number: [id number] No. of containers..01 Tissue . 01 Material submitted: . uterus - UTERUS AND BILATERAL FALLOPIAN TUBES . 01 Diagnosis: A. Uterus, Bilateral Fallopian Tubes, Supracervical Hysterectomy And Bilateral Salpingectomy: Late proliferative/early secretory phase endometrium. Myometrium with focal features suggestive of adenomyosis. Serosa within normal limits. Bilateral fallopian tubes with benign paratubal cysts. No evidence of neoplasia, dysplasia, or malignancy. [facility] 05/08/2023 1144 Local . 01 Electronically signed: . Ximena Barrera MD, Pathologist NPI- [id number] . 01 Gross description: . The specimen is received in formalin labeled with the patient's name, , and uterus, bilateral fallopian tubes consist of a disrupted, fragmented uterus (100 grams, and aggregating to 10.8 x 10.5 x 4.2 cm) with two detached, unoriented, fimbriated fallopian tubes (4.3 x 0.5 cm and 3.3 x 0.6 cm), with no cervix or additional adnexa identified. The serosa is flores and smooth with no evidence of hemorrhage or adhesion identified. The endometrium is red-brown and velvety, and averages 0.3 cm thick with no lesions identified. The myometrium is flores and trabecular with no lesions or nodules grossly identified. . The longer fallopian tube has flores, smooth serosa with cystic structures near the fimbriated end measuring up to 0.4 cm in greatest dimension, filled with clear serous fluid. Sectioning reveals an unremarkable stellate lumen. The shorter fallopian tube has flores, smooth serosa with the cystic structure near the fimbriated end measuring 1.4 cm in greatest dimension filled with clear serous fluid. Sectioning reveals an unremarkable stellate lumen. . Support Services Coordinator sections are submitted as follows: A1: Endometrium. A2: Serosa. A3: Longer fallopian tube to include one-half of bisected fimbria and cross sections. A4: Warren fallopian tube to include one-half of bisected fimbria and cross-sections. ([id number]) /MRV 04/29/2023 1354 Local . 01 Pathologist provided ICD-10: N92.1 . 01 CPT . 032798 Specimen Comment: A courtesy copy of this report has been sent to [phone] Performed at: 01 [facility] [address] [place] [address], [place], [place] [id number] MD Noé Schuster MD Phone: [phone]
[2023-04-28] MEDS: LACTATED RINGERS 1,000 ML 100 ML IV ×2 (06:50→10:26)
[2023-04-28] MEDS: SCOPOLAMINE 1 PATCH TOP (07:24)
--- NOTE | 2023-04-28 07:45 | PM.PREOP ---
Pre-operative Note COVID-19 Criteria for continued procedure: Non-surgical alternatives not available or appropriate per current SOC Interval Note History & Physical reviewed/Exam performed by Physician: Yes Changes to H&P: No H&P completed within 30 days and has changed as indicated here:: 04/22/23
[2023-04-28] MEDS: CEFAZOLIN 2 GM/100 ML PREMIX 100 ML IV (08:00)
--- NOTE | 2023-04-28 08:13 | SUR.OPER ---
Lithotomy on padded OR bed. Olpe Pad Positioner under torso. Head on pillow, arms padded and tucked at sides. Legs secured in padded yellow fins stirrups.
[2023-04-28] MEDS: ACETAMINOPHEN IV 1,000 MG/100 ML VIAL 400 MG IV (08:21)
[2023-04-28] MEDS: BUPIVACAINE 0.5% (PF) 30 ML, EPINEPHrine 0.15 MG INJ (08:22)
[2023-04-28] MEDS: ROPIVACAINE 0.2% PF 2 MG/ML 20ML AMP 20 ML INJ (08:53)
--- NOTE | 2023-04-28 09:17 | PM.GYNOP.1 ---
Operative Date/Time/Diagnoses Date of procedure: 04/28/23 Time of procedure: 09:17 Pre-op diagnosis: Menometrorrhagia Post-op diagnosis: same Procedure & Clinicians Procedure: Procedures Operation Date: 04/28/23 07:45 Actual Procedure Side Surgeon p Laparoscopic Supracervical Hysterectomy with bilateral salpingectomy Aziza Biggs MD Indications: Menometrorrhagia Surgeon: Aziza Biggs Publications Production Supervisor: Paty Tinoco Anesthesia Type: General and Local Operative Notes Findings: 10 week size anteverted uterus Tubes status post ligation Normal appendix Normal gallbladder and liver Left paratubal cyst Closure Type: primary Specimen(s): left tube, right tube and uterus Applied: catheter (Removed at the end of the case) Estimated blood loss (mL): 20 Blood products transfused: none Procedure in detail: The patient was taken to the operating room where she was placed in the dorsal supine position. After adequate general endotracheal anesthesia was achieved, she was placed in the dorsal lithotomy position, and prepped and draped in the usual sterile fashion. A timeout was performed. A bivalve speculum was placed into the vagina and the anterior lip of the cervix grasped with a single-tooth tenaculum. The cervical os was sequentially dilated until the ZUMI uterine manipulator could pass easily into the endometrial cavity. The single-tooth tenaculum was removed from the anterior lip of the cervix, and the bivalve speculum was removed from the vagina. Attention was then turned to the abdomen where 6 mL of half percent Marcaine with epinephrine were injected in the umbilical fold. A 5 mm incision was made. The Verees needle was placed into the peritoneal cavity, and its placement confirmed by aspiration and drop test. The abdomen was insufflated with 3.1 L of CO2. The Verees needle was removed. A 5 mm trocar was placed without difficulty. 2 other incisions were made 4 cm lateral to the umbilicus after 5 mL of half percent Marcaine with epinephrine were injected. These were 5 mm incisions. Two 5 mm trocars were placed under direct visualization. The right tube was grasped with an atraumatic grasper. Using the LigaSure the mesosalpinx was cauterized and cut all the way down to the cornua of the uterus. The cornua of the uterus was then grasped with an atraumatic grasper. The utero-ovarian ligaments were cauterized and cut. The round ligament and broad ligament was cauterized and cut with the LigaSure. Hemostasis was achieved. The bladder flap was created using the LigaSure with cautery and cut prison across. The uterine arteries on the right side were extensively cauterized with the LigaSure. All of this was repeated on the left side. The remainder of the bladder flap was created using the LigaSure, and the bladder taken down off the lower uterine segment and cervix. Using the Jossie loop, the cervix was amputated from the uterus 2 cm above the uterosacral ligaments, after the ZUMI uterine manipulator was removed from the uterus. There was a small amount of bleeding noted from the posterior and left edge of the cervix, and this was cauterized for hemostasis. The endocervical canal was extensively cauterized with the spatula. A sponge stick was placed into the vagina. 6 mL of half percent Marcaine with epinephrine were injected above the pubic symphysis. A 12 mm incision was made. A 12 mm trocar was placed. An Endobag was placed through the suprapubic trocar and the uterus and tubes were placed into the Endobag. The trocar was removed. The edges of the endobag were brought up through the skin. The uterus was grasped with a Priyanka. The Jose placed into the endobag. The uterus was hand morcellated in approximately 6 pieces. The Endobag was removed from the peritoneal cavity with the Jose. The fascia was reapproximated with 0 Vicryl in a running fashion. The abdomen was re-insufflated with carbon dioxide gas. The pelvis was copiously irrigated with warm normal saline. No bleeding was noted. 20 cc of 0.2% ropivacaine were placed over the pedicles. The instruments were removed from the abdomen. The CO2 was allowed to escape. Two simple interrupted sutures with 3-0 Vicryl were placed in the suprapubic incision. All of the incisions were closed with 4-0 Biosyn in a subcuticular fashion. Steri-Strips and Allevyn dressings were placed. The moistened sponge stick was removed from the vagina. Sponge, lap, and instrument counts were correct x-2. The patient tolerated the procedure well, was taken to PACU in stable condition. Complications: none Post-operative Condition: stable Disposition: PACU Plan for aftercare: Home after recovery
[2023-04-28] MEDS: HYDROMORPHONE 2 MG INJ IV ×4 (09:25→09:53)
[2023-04-28] MEDS: ONDANSETRON 4 MG/2 ML INJ IV (09:29)
[2023-04-28] MEDS: OXYCODONE IR 5 MG TABLET PO ×2 (09:29→10:35)
[2023-04-28] MEDS: LORazepam 2 MG/ML INJ 0.25 MG IV (09:32)
[2023-04-28] MEDS: METOCLOPRAMIDE 10 MG/2 ML INJ IV (09:35)
== END 2023-04-28 10:40 | disposition home or self-care (01) ==
PROVIDERS: Family Provider Internal Medicine; Referring Provider Obstetrics & Gynecology; Visit Provider Obstetrics & Gynecology
PROC: 0UT94ZL Resection of Uterus, Supracervical, Percutaneous Endoscopic Approach (ICD-10-PCS; CPT 58542; principal; 2023-04-28 07:45)
DX: N92.1 Excessive and frequent menstruation with irregular cycle (principal); N83.8 Other noninflammatory disorders of ovary, fallopian tube and broad ligament
CPT/HCPCS: 58542; J0131; J0171; J0330; J0690; J1100; J1170; J1885; J2060; J2405; J2704; J2765; J2795; J3010; J3490

== ENCOUNTER → 2023-05-05 12:30 | Outpatient (CLI) | payer OTHER, SELFPAY ==
--- NOTE | 2023-05-05 12:31 | DI.CT.S_ITS ---
PROCEDURE: CT ABDOMEN PELVIS W CON INDICATIONS: Post OP pain TECHNIQUE: After the administration of intravenous and oral contrast, axial sections acquired from the lung bases to the pubic symphysis. Coronal and sagittal reformats were performed. For radiation dose reduction, the following was used: automated exposure control, adjustment of mA and/or kV according to patient size. COMPARISON: [facility], , PELVIC COMPLETE, 03/26/2023, 13:13. FINDINGS: Image quality: Excellent. Lung bases: Bilateral breast implants are grossly intact. bilateral lung bases are clear.. Heart: No significant findings. ABDOMEN: Liver: Unremarkable. Gallbladder: Gallbladder is within normal limits. Biliary ducts: Unremarkable. Pancreas: Unremarkable. Spleen: Unremarkable. Adrenal Glands: Unremarkable. Kidneys and Ureters: Unremarkable. Stomach and Bowel: There is no bowel obstruction. No gastric or small bowel wall thickening. No abnormal colonic wall thickening. Mild to moderate fecal stasis in the colon is seen. Peritoneum: Small to moderate amount of free fluid in lower pelvis is seen. No free air. Ventral Wall: No hernias. Abdominal Nodes: No retroperitoneal or mesenteric adenopathy by size criteria. Vessels: Aorta and inferior vena cava are normal in size. PELVIS: Pelvic Organs: Patient is status post hysterectomy. There is likely postsurgical changes in the vaginal cuff region. No definite drainable abscess collection. Possible cyst in left adnexa is seen measures 2.1 x 1.9 cm in size. Bladder: Unremarkable. Pelvic Nodes: No enlarged lymph nodes. Miscellaneous: No hernias are seen. Postsurgical changes are seen in right anterior pelvic wall. Bones: No suspicious bony lesions. No acute vertebral body compression fracture. IMPRESSION: 1. Patient is status post hysterectomy with postsurgical changes in vaginal cuff region suggest clinical correlation and follow-up. Small to moderate amount of free fluid in lower pelvis. No gross peritoneal free air. 2. Possible left ovarian cyst as above. 3. No bowel obstruction or abnormal bowel wall thickening. Ebrn-yv-ucqywyrr constipation. Dictated by: James Tijerina M.D. on 05/05/2023 at 13:36 Approved by: James Tijerina M.D. on 05/05/2023 at 13:42
== END ==
PROVIDERS: Family Provider Internal Medicine; Referring Provider Obstetrics & Gynecology; Visit Provider Obstetrics & Gynecology
DX: G89.18 Other acute postprocedural pain (principal); K59.00 Constipation, unspecified; Z90.710 Acquired absence of both cervix and uterus
CPT/HCPCS: 74177; Q9967

== ENCOUNTER → 2024-01-19 15:04 | Outpatient (CLI) | payer OTHER, SELFPAY ==
--- NOTE | 2024-01-19 15:06 | DI.RAD.S_ITS ---
PROCEDURE: XR CHEST 2V INDICATIONS: CHRONIC COUGH TECHNIQUE: 2 views of the chest were acquired. COMPARISON: [facility], CR, XR CHEST 2V, 03/16/2019, 18:56. FINDINGS: Surgical changes and devices: None. Lungs and pleura: Lungs are clear. No pleural effusions or pneumothorax. Mediastinum: Mediastinal contours are normal. Heart size is normal. Bones and chest wall: No suspicious bony abnormalities. Soft tissues appear unremarkable. IMPRESSION: No acute cardiopulmonary abnormality is seen. Dictated by: Luis Michelle M.D. on 01/19/2024 at 16:33 Approved by: Luis Michelle M.D. on 01/19/2024 at 16:34
== END ==
PROVIDERS: Family Provider Internal Medicine; PCP Family Medicine; Referring Provider Family Medicine; Visit Provider Family Medicine
DX: R05.3 Chronic cough (principal); R09.89 Other specified symptoms and signs involving the circulatory and respiratory systems
CPT/HCPCS: 71046

== ENCOUNTER → 2024-09-14 12:30 | Outpatient (CLI) | payer OTHER, SELFPAY ==
--- NOTE | 2024-09-14 12:42 | DI.RAD.S_ITS ---
PROCEDURE: XR LUMBAR SPINE 2-3V INDICATIONS: BACK PAIN TECHNIQUE: 3 views of the lumbar spine were acquired. COMPARISON: [facility], CR, XR LUMBAR SPINE WITH OBLIQUES, 09/28/2018, 15:40. FINDINGS: Bones: 5 etn-rpa-ichyryr vertebrae are present. There is multilevel trace retrolisthesis. Scattered multilevel degenerative disc and foraminal narrowing most prominent L5-S1. No vertebral body compression fractures. No suspicious bony lesions. Soft tissues: Overlying bowel gas pattern is normal. No suspicious soft tissue calcifications. IMPRESSION: No acute bony abnormality. Early degenerative change most prominent L5-S1. Dictated by: Marysol Doyle M.D. on 09/14/2024 at 21:38 Approved by: Marysol Doyle M.D. on 09/14/2024 at 21:38
--- NOTE | 2024-09-14 12:42 | DI.RAD.S_ITS ---
PROCEDURE: XR THORACIC SPINE 2V INDICATIONS: BACK PAIN TECHNIQUE: 2 views of the thoracic spine were acquired. COMPARISON: [facility], CR, XR CHEST 2V, 01/19/2024, 14:19. FINDINGS: Bones: No fractures or dislocations. No suspicious bony lesions. 12 pairs of ribs are noted, and appear intact where visualized. Scattered areas degenerative disc space narrowing as well as small anterior osteophytes. Soft tissues: No paravertebral stripe thickening. IMPRESSION: Early degenerative changes. Dictated by: Marysol Doyle M.D. on 09/14/2024 at 21:39 Approved by: Marysol Doyle M.D. on 09/14/2024 at 21:39
--- NOTE | 2024-09-14 12:43 | DI.RAD.S_ITS ---
PROCEDURE: XR SACROILIAC JOINT MIN 3V INDICATIONS: BACK PAIN TECHNIQUE: 3 views of the sacroiliac joints were acquired. COMPARISON: None. FINDINGS: Bones: No bony erosions or ankylosis. No suspicious bony lesions. No fractures. Soft tissues: Overlying bowel gas pattern is normal. No suspicious soft tissue densities. IMPRESSION: No radiographic evidence of sacroiliitis. Dictated by: Marysol Doyle M.D. on 09/14/2024 at 21:39 Approved by: Marysol Doyle M.D. on 09/14/2024 at 21:39
--- NOTE | 2024-09-14 12:43 | DI.RAD.S_ITS ---
PROCEDURE: XR CERVICAL SPINE 2V OR 3V INDICATIONS: BACK PAIN TECHNIQUE: 3 view(s) of the cervical spine were acquired. COMPARISON: [facility], CR, XR CERVICAL SPINE WITH OBLIQUES, 09/28/2018, 15:40. FINDINGS: Bones: No fractures or dislocations to the T1 level. The lateral masses of C1 appear intact on the odontoid view. No suspicious bony lesions. Reversal cervical curvature with apex C5-6. Multilevel degenerative disc space narrowing most severe at C5-6 and C6-7 with small anterior osteophytes. Scattered uncovertebral hypertrophy. Soft tissues: No prevertebral soft tissue swelling. IMPRESSION: Reversal cervical curvature with degenerative changes most severe at C5-6. Dictated by: Marysol Doyle M.D. on 09/14/2024 at 21:40 Approved by: Marysol Doyle M.D. on 09/14/2024 at 21:40
== END ==
PROVIDERS: Family Provider Internal Medicine; PCP Family Medicine; Referring Provider Family Medicine; Visit Provider Family Medicine
DX: M47.812 Spondylosis without myelopathy or radiculopathy, cervical region (principal); M47.814 Spondylosis without myelopathy or radiculopathy, thoracic region; M47.817 Spondylosis without myelopathy or radiculopathy, lumbosacral region; M45.0 Ankylosing spondylitis of multiple sites in spine; M54.2 Cervicalgia
CPT/HCPCS: 72040; 72070; 72100; 72202

== ENCOUNTER → 2024-12-03 11:14 | Outpatient (CLI) | payer OTHER, SELFPAY ==
--- NOTE | 2024-12-03 11:15 | DI.RAD.S_ITS ---
PROCEDURE: FL BARIUM SWALLOW INDICATIONS: Dysphagia COMPARISON: [facility], CR, XR THORACIC SPINE 2V, 09/14/2024, 12:50. [facility], CR, XR CERVICAL SPINE 2V OR 3V, 09/14/2024, 12:50. [facility], CT, CT ABDOMEN PELVIS W CON, 05/05/2023, 13:19. FINDINGS: Function: Mild esophageal dysmotility. This is demonstrable by diminished peristaltic stripping and intra esophageal reflux. There is brief tertiary contractions. No elicited gastroesophageal reflux despite multiple times. There is normal transit of a calibrated barium tablet through the esophagus into the stomach. Morphology: Air-contrast images demonstrate normal mucosal morphology. Single contrast views show no esophageal strictures, extrinsic mass effects, or diverticula. Limited images of the stomach demonstrate normal appearance. There is passage of contrast through the stomach. IMPRESSION: Mild esophageal dysmotility. No stricture or diverticulum. CT chest with IV contrast may be helpful for further evaluation of the mediastinum. Patient also reports hoarseness. Dictated by: Jonathan Sal M.D. on 12/03/2024 at 13:03 Approved by: Jonathan Sal M.D. on 12/03/2024 at 13:06
== END ==
LOC: RAD 11:15
PROVIDERS: Family Provider Internal Medicine; PCP Family Medicine; Referring Provider Family Medicine; Visit Provider Family Medicine
DX: R13.10 Dysphagia, unspecified (principal); K22.4 Dyskinesia of esophagus
CPT/HCPCS: 74220